=== PATIENT | male | born 1995 ===

== ENCOUNTER 2020-09-24 13:13 | Inpatient (IN) | payer OTHER ==
[~2020-09-24] VITALS: Ht 180.3 cm; Wt 80.3 kg
--- NOTE | 2020-09-24 17:20 | RAD ---
EXAM: AP View of the chest DATE: 09/24/2020 5:07 PM INDICATION: Shortness of air COMPARISON: No Prior FINDINGS: The heart is not enlarged. Mediastinal and hilar contours are stable. Small right pleural effusion. No pneumothorax. Parenchymal opacities in the right lower lobe may represent consolidation. Imaging follow-up to resol ution is recommended. IMPRESSION: Consolidative opacity right lower lobe with right pleural effusion. This may be infectious or inflamm atory process. However, imaging follow-up to resolution is recommended. Electronically signed by: Ethan Gray MD (09/24/2020 5:18 PM) [facility]
--- NOTE | 2020-09-24 18:38 | EKG ---
[facility] [address] [place] [address] Test Date: 2020-09-24 Test Time: 16:58:35 Pat Name: LEYLA CARSON Department: Room: Gender: M [employer] Lead: : 1995 Requested By: PIOTR BUSTOS Order Number: [id number] Reading MD: Measurements Intervals [place] Rate: 79 P: 39 AL: 152 QRS: 26 QRSD: 88 T: 26 QT: 384 QTc: 441 Interpretive Statements SINUS RHYTHM NORMAL ECG RI6.02 No previous ECG available for comparison
[2020-09-24 18:49] LABS: BASO # 0.1 x10^3/uL (0.0-0.2); BASO % 0 % (0-3); EOS % 0 % (0-3); HEMATOCRIT 34.7 % (39.0-53.0); HEMOGLOBIN 11.7 g/dL (13.0-17.5); LYMPH # 1.2 x10^3/uL (1.0-4.8); LYMPH % 7 % (24-48); MEAN CORPUSCULAR HEMOGLOBIN 29 pg (25-35); MEAN CORPUSCULAR HGB CONC 34 g/dL (31-37); MEAN CORPUSCULAR VOLUME 87 fL (79-100); MONO # 0.5 x10^3/uL (0.0-1.1); MONO % 3 % (0-9); NEUT # 17.1 x10^3/uL (1.8-7.7); NEUT % 91 % (31-73); PLATELET COUNT 651 x10^3/uL (140-400); RED CELL DISTRIBUTION WIDTH 15.2 % (11.5-14.5); WHITE BLOOD COUNT 18.9 x10^3/uL (4.0-11.0)
[2020-09-24 18:51] LABS: BILIRUBIN,URINE NEGATIVE (NEG); CLARITY,URINE CLEAR; COLOR,URINE YELLOW; NITRITE,URINE NEGATIVE (NEG); PROTEIN,URINE NEGATIVE (NEG-TRACE); UROBILINOGEN,URINE 0.2 mg/dL (0.2 mg/dL)
[2020-09-24 19:02] LABS: BACTERIA,URINE 0 /HPF (0-FEW); RBC,URINE 0 /HPF (0-2)
[2020-09-24 19:03] LABS: CALCIUM 8.4 mg/dL (8.5-10.1); CREATININE 0.8 mg/dL (0.7-1.3); GFR 116.9; POTASSIUM 4.4 mmol/L (3.5-5.1)
[2020-09-24 19:09] LABS: ALBUMIN 1.7 g/dL (3.4-5.0); ALBUMIN/GLOBULIN RATIO 0.3 (1.0-1.7); MAGNESIUM 2.4 mg/dL (1.8-2.4); TOTAL BILIRUBIN 0.4 mg/dL (0.2-1.0); TOTAL PROTEIN 7.2 g/dL (6.4-8.2)
[2020-09-24] MEDS ORDERED: IOHEXOL 350 MG/ML 100 ML VIAL. IV ONE (19:30)
[2020-09-24 19:33] LABS: % BANDS 10 % (0-9); % LYMPHS 6 % (24-48); % METAS 4 % (0-0); % SEGS 80 % (35-66)
[2020-09-24 19:34] LABS: PLT ESTIMATE INCREASED (ADEQUATE)
--- NOTE | 2020-09-24 20:01 | PHYS DOC ---
Past Medical History Past Medical History: No Pertinent History (PIOTR BUSTOS ENGINEERING GEOLOGIST) Past Surgical History: No Surgical History (PIOTR BUSTOS ENGINEERING GEOLOGIST) Smoking Status: Current Every Day Smoker Additional Information: 1 PPD Alcohol Use: Occasionally (PIOTR BUSTOS ENGINEERING GEOLOGIST) General Adult EDM: Chief Complaint: SHORTNESS OF BREATH HPI: HPI: Patient is a 25 year old male patient presenting from the local correctional facility with 2 security officers to be evaluated for cough and shortness of breath for 2 weeks. Patient was is on antibiotics but reports no improvement in symptoms. Patient denies any fever. Patient states he had a negative Covid test in [facility] yesterday (BLUNicholasPIOTR Ghada ENGINEERING GEOLOGIST) Review of Systems: Review of Systems: Constitutional: Denies fever or chills. [] Eyes: Denies change in visual acuity. [] HENT: Denies nasal congestion or sore throat. [] Respiratory: Reports cough and shortness of breath. [] Cardiovascular: Denies chest pain or edema. [] GI: Denies abdominal pain, nausea, vomiting, bloody stools or diarrhea. [] : Denies dysuria. [] Musculoskeletal: Denies back pain or joint pain. [] Integument: Denies rash. [] Neurologic: Denies headache, focal weakness or sensory changes. [] [] Psychiatric: Denies depression or anxiety. [] (PIOTR BUSTOS ENGINEERING GEOLOGIST) Heart Score: C/O Chest Pain: N/A (Negative) Risk Factors: Risk Factors: DM, Current or recent (<one month) smoker, HTN, HLP, family history of CAD, obesity. Risk Scores: Score 0 - 3: 2.5% MACE over next 6 weeks - Discharge Home Score 4 - 6: 20.3% MACE over next 6 weeks - Admit for Clinical Observation Score 7 - 10: 72.7% MACE over next 6 weeks - Early Invasive Strategies (PIOTR BUSTOS ENGINEERING GEOLOGIST) Current Medications: Current Medications Medications (Trade) Dose Ordered Sig/Ayaka Start Time Stop Time Status Last Admin Dose Admin Iohexol (Omnipaque 350 Mg/ml) 100 ml 1X ONCE 09/24/20 19:30 09/24/20 19:33 DC 09/24/20 19:47 100 ML (PIOTR BUSTOS ENGINEERING GEOLOGIST) Allergies: Allergies: Allergies Coded Allergies Type Severity Reaction Last Updated Verified cefaclor Allergy Unknown UNKNOWN 09/24/20 Yes (PIOTR BUSTOS ENGINEERING GEOLOGIST) Physical Exam: PE: Constitutional: Well developed, well nourished, no acute distress, non-toxic appearance. [] HENT: Normocephalic, atraumatic, bilateral external ears normal, oropharynx moist, no oral exudates, nose normal. [] Eyes: PERRLA, EOMI, conjunctiva normal, no discharge. [] Neck: Normal range of motion, no tenderness, supple, no stridor. [] Cardiovascular:Heart rate regular rhythm, no murmur [] Lungs & Thorax: Diminished breath sounds Abdomen: Bowel sounds normal, soft, no tenderness, no masses, no pulsatile corey s. [] Skin: Warm, dry, no erythema, no rash. [] Back: No tenderness, no CVA tenderness. [] Extremities: No tenderness, no cyanosis, no clubbing, ROM intact, no edema. [] Neurologic: Alert and oriented X 3, normal motor function, normal sensory function, no focal deficits noted. [] Psychologic: Affect normal, judgement normal, mood normal. [] (PIOTR BUSTOS ENGINEERING GEOLOGIST) Current Patient Data: Labs: Laboratory Tests Test 09/24/20 18:35 09/24/20 18:40 Urine Collection Type Unknown Urine Color Yellow Urine Clarity Clear Urine pH 6.0 (<5.0-8.0) Urine Specific [place] <=1.005 (1.000-1.030) Urine Protein Negative mg/dL (NEG-TRACE) Urine Glucose (UA) Negative mg/dL (NEG) Urine Ketones (Stick) Negative mg/dL (NEG) Urine Blood Negative (NEG) Urine Nitrite Negative (NEG) Urine Bilirubin Negative (NEG) Urine Urobilinogen Dipstick 0.2 mg/dL (0.2 mg/dL) Urine Leukocyte Esterase Negative (NEG) Urine RBC 0 /HPF (0-2) Urine WBC 1-4 /HPF (0-4) Urine Bacteria 0 /HPF (0-FEW) White Blood Count 18.9 x10^3/uL (4.0-11.0) H Red Blood Count 4.00 x10^6/uL (4.30-5.70) L Hemoglobin 11.7 g/dL (13.0-17.5) L Hematocrit 34.7 % (39.0-53.0) L Mean Corpuscular Volume 87 fL (79-100) Mean Corpuscular Hemoglobin 29 pg (25-35) Mean Corpuscular Hemoglobin Concent 34 g/dL (31-37) Red Cell Distribution Width 15.2 % (11.5-14.5) H Platelet Count 651 x10^3/uL (140-400) H Neutrophils (%) (Auto) 91 % (31-73) H Lymphocytes (%) (Auto) 7 % (24-48) L Monocytes (%) (Auto) 3 % (0-9) Eosinophils (%) (Auto) 0 % (0-3) Basophils (%) (Auto) 0 % (0-3) Neutrophils # (Auto) 17.1 x10^3/uL (1.8-7.7) H Lymphocytes # (Auto) 1.2 x10^3/uL (1.0-4.8) Monocytes # (Auto) 0.5 x10^3/uL (0.0-1.1) Eosinophils # (Auto) 0.0 x10^3/uL (0.0-0.7) Basophils # (Auto) 0.1 x10^3/uL (0.0-0.2) Segmented Neutrophils % 80 % (35-66) H Band Neutrophils % 10 % (0-9) H Lymphocytes % 6 % (24-48) L Metamyelocytes % 4 % (0-0) H Platelet Estimate Increased (ADEQUATE) D-Dimer (Kristen) 1.71 ug/mlFEU (0.00-0.50) H Sodium Level 133 mmol/L (136-145) L Potassium Level 4.4 mmol/L (3.5-5.1) Chloride Level 99 mmol/L (98-107) Carbon Dioxide Level 27 mmol/L (21-32) Anion Gap 7 (6-14) Blood Urea Nitrogen 10 mg/dL (8-26) Creatinine 0.8 mg/dL (0.7-1.3) Estimated GFR (Cockcroft-Gault) 116.9 BUN/Creatinine Ratio 13 (6-20) Glucose Level 124 mg/dL (70-99) H Lactic Acid Level 1.2 mmol/L (0.4-2.0) Calcium Level 8.4 mg/dL (8.5-10.1) L Magnesium Level 2.4 mg/dL (1.8-2.4) Total Bilirubin 0.4 mg/dL (0.2-1.0) Aspartate Amino Transferase (AST) 43 U/L (15-37) H Alanine Aminotransferase (ALT) 50 U/L (16-63) Alkaline Phosphatase 57 U/L (46-116) Troponin I Quantitative < 0.017 ng/mL (0.000-0.055) WQ-Usc-S-Type Natriuretic Peptide 83 pg/mL (0-124) Total Protein 7.2 g/dL (6.4-8.2) Albumin 1.7 g/dL (3.4-5.0) L Albumin/Globulin Ratio 0.3 (1.0-1.7) L Procalcitonin 0.35 ng/mL (0.00-0.10) H Laboratory Tests 09/24/20 18:40 Laboratory Tests 09/24/20 18:40 Vital Signs: Vital Signs Date Time Temp Pulse Resp B/P (MAP) Pulse Ox O2 Delivery O2 Flow Rate FiO2 09/24/20 16:42 98.3 80 20 116/69 (85) 94 Room Air 98.3 (PIOTR BUSTOS ENGINEERING GEOLOGIST) EKG: EK Interpreted by Dr. Noble sinus rhythm heart rate 79 no STEMI [] (PIOTR BUSTOS ENGINEERING GEOLOGIST) Radiology/Procedures: Radiology/Procedures: []PROCEDURE: PORTABLE CHEST 1V EXAM: AP View of the chest DATE: 09/24/2020 5:07 PM INDICATION: Shortness of air COMPARISON: No Prior FINDINGS: The heart is not enlarged. Mediastinal and hilar contours are stable. Small right pleural effusion. No pneumothorax. Parenchymal opacities in the right lower lobe may represent consolidation. Imaging follow-up to resolution is recommended. IMPRESSION: Consolidative opacity right lower lobe with right pleural effusion. This may be infectious or inflammatory process. However, imaging follow-up to resolution is recommended. Electronically signed by: Ethan Jones MD (09/24/2020 5:18 PM) [facility] DI[facility]ATED and SIGNED BY: ETHAN JONES MD DATE: 09/24/20 [id number] PROCEDURE: CT ANGIOGRAPHY CHEST Exam: CT of chest with contrast INDICATION: Short of air TECHNIQUE: Sequential axial images through the chest obtained following the admi nistration 100 mL of Omni 350 IV contrast. Sagittal and coronal reformatted images were reconstructed from the axial data and reviewed. 3-D reformatted images were reconstructed from the axial data and reviewed. Comparisons: Chest x-ray same day FINDINGS: Visualized portions of the thyroid are unremarkable. Right hilar adenopathy is noted. Heart size is normal. Small pericardial effusion. Thoracic aorta has a normal course and caliber. Pulmonary artery is not enlarged. No pulmonary embolus id entified within the main, lobar or segmental arteries. Airways are patent. There is consolidative changes noted in the right lower lobe. There is a 6.1 x 2.3 cm air and fluid collection along the periphery of the right lower lobe favored represent cavitary lesion with internal air and fluid. There is a small right pleural effusion. Visualized upper abdomen is unremarkable. No suspicious osseous lesions or acute fractures. IMPRESSION: 1. Right lower lobe pneumonia with a cavitary lesion in the right lower lobe measuring approximately 6.1 x 2.4 cm with internal air and fluid favored repres ent abscess. 2. There is a small right pleural effusion noted. 3. No pulmonary embolus identified within the main, lobar or segmental pulmonary arteries. Exposure: One or more of the following in the visualized dose reduction techniques were utilized for this examination: 1. Automated exposure control 2. Adjustment of the MA and/or KV according to patient size 3. Use of iterative of reconstructive technique Electronically signed by: Hoang Hayes MD (09/24/2020 8:03 PM) [facility] DICTATED and SIGNED BY: HOANG HAYES MD DATE: 09/24/[id number] 0 (PIOTR BUSTOS APRN) Course & Med Decision Making: Course & Med Decision Making Pertinent Labs and Imaging studies reviewed. (See chart for details) This is a 25-year-old male patient presenting to the ED today from the local correctional facility to be evaluated for shortness of breath and cough for 2 weeks. Vitals on arrival to the ED temperature 98.3, heart rate 80, respiration 20 on room air, blood pressure 116/69, O2 sats 94% on room air CBC with a WBC of 18.9 and a left shift, hemoglobin 11.7, hematocrit 34.7. D- dimer 1.71, CTA chest was obtained. Lactic is normal Chest x-ray noted for consolidative opacity right lower lobe with right pleural effusion. This may be infectious or inflammatory process. CTA chest noted for right lower lobe pneumonia with right lower lobe abscess abscess. small right pleural effusion noted. No PE Patient was started on IV fluids, Zosyn and vancomycin Spoke with Dr. Simons who accepted patient for admission Spoke with Dr. Pandey infectious disease Spoke with Dr. Healy pulmonary (PIOTR BUSTOS APRN) Dragon Disclaimer: Dragon Disclaimer: This electronic medical record was generated, in whole or in part, using a voice recognition dictation system. (PIOTR BUSTOS APRN) Departure Departure Impression: Primary Impression: Right lower lobe pneumonia Qualified Codes: J18.9 - Pneumonia, unspecified organism Additional Impressions: Shortness of breath Leukocytosis Qualified Codes: D72.829 - Elevated white blood cell count, unspecified Disposition: ADMITTED INPATIENT Condition: STABLE Referrals: NO PCP (PCP) Attending Signature Attending Signature I have participated in the care of this patient and I have reviewed and agree with all pertinent clinical information above including history, exam, and recommendations. (ANITA JOEL MD) PIOTR BUSTOS APRN Sep 24, 2020 20:01 ANITA JOEL MD Sep 25, 2020 06:06
--- NOTE | 2020-09-24 20:05 | RAD ---
Exam: CT of chest with contrast INDICATION: Short of air TECHNIQUE: Sequential axial images through the chest obtained following the administration 100 mL of Omni 350 IV contrast. Sagittal and coronal reformatted images were reconstructed from the axial data and reviewed. 3-D reformatted images were reconstructed from the axial data and reviewed. Comparisons: Chest x-ray same day FINDINGS: Visualized portions of the thyroid are unremarkable. Right hilar adenopathy is noted. Heart size is normal. Small pericardial effusion. Thoracic aorta has a normal course and caliber. Pul monary artery is not enlarged. No pulmonary embolus identified within the main, lobar or segmental ar teries. Airways are patent. There is consolidative changes noted in the right lower lobe. There is a 6.1 x 2. 3 cm air and fluid collection along the periphery of the right lower lobe favored represent cavitary lesion with internal air and fluid. There is a small right pleural effusion. Visualized upper abdomen is unremarkable. No suspicious osseous lesions or acute fractures. IMPRESSION: 1. Right lower lobe pneumonia with a cavitary lesion in the right lower lobe measuring approximately 6.1 x 2.4 cm with internal air and fluid favored represent abscess. 2. There is a small right pleural effusion noted. 3. No pulmonary embolus identified within the main, lobar or segmental pulmonary arteries. Exposure: One or more of the following in the visualized dose reduction techniques were utilized for this examination: 1. Automated exposure control 2. Adjustment of the MA and/or KV according to patient size 3. Use of iterative of reconstructive technique Electronically signed by: Hoang Ojeda MD (09/24/2020 8:03 PM) [facility]
[2020-09-24] MEDS ORDERED: IV NORMAL SALINE 1000ML BAG 2,250 ML IV SCH (20:15)
[2020-09-24] MEDS ORDERED: VANCOMYCIN PER PHARMACY MC ONE (20:15)
[2020-09-24] MEDS ORDERED: SENNOSIDES 8.6 MG TABLET PO PRN (20:30)
[2020-09-24] MEDS ORDERED: DEXTROSE 50% 25 GM / 50ML DISP.SYRIN. IV PRN (20:30)
[2020-09-24] MEDS: IV NORMAL SALINE 1000ML BAG 1,000 ML IV SCH (20:30)
[2020-09-24] MEDS ORDERED: ONDANSETRON PF 4 MG/2 ML VIAL. IVP PRN (20:30)
[2020-09-24] MEDS ORDERED: DOCUSATE SODIUM 100 MG CAPSULE. PO PRN (20:30)
--- NOTE | 2020-09-24 20:30 | PDOC1 ---
History and Physical Date of Service: DOS: DATE: 09/24/20 TIME: 20:25 Chief Complaint: Chief Complain: shortness of breath History of Present Illness: HPI: 25-year-old male with PMHx of IVDA 6 years ago, Hx of childhood asthma, and incarcerated 1 year ago comes [facility] due to Cough and shortness of breath for 2 weeks. Apparently, patient had a cough 2 months ago but did not do much about it at that time. With this presenation, patient was unable to sleep and had more production with riya brown malodorous sputum. He felt as if something was draining from his lungs when lying down on his Right side. Patient was is on antibiotics but reports no improvement in symptoms. Patient denies any fever, chest pain, dysuria, or bloody stools.. Past Medical/Surgical History: PMH/PSH: No past medical surgical history Allergies: Allergies: Coded Allergies: cefaclor (Verified Allergy, Unknown, UNKNOWN, 09/24/20) Family History: Family History: Reviewed with no pertinent findings Social History: Social History: Past Medical History: No Pertinent History Past Surgical History: No Surgical History Current Medications: Current Medications Current Medications Iohexol (Omnipaque 350 Mg/ml) 100 ml 1X ONCE IV Last administered on 09/24/20at 19:47; Start 09/24/20 at 19:30; Stop 09/24/20 at 19:33; Status DC Sodium Chloride 2,250 ml @ 2,250 mls/hr Q1H IV ; Start 09/24/20 at 20:15; Status UNV Piperacillin Sod/ Tazobactam Sod 4.5 gm/Sodium Chloride 100 ml @ 200 mls/hr 1X ONCE IV ; Start 09/24/20 at 20:15; Stop 09/24/20 at 20:44; Status UNV Vancomycin HCl (Vanco Per Pharmacy) 1 each 1X ONCE MC ; Start 09/24/20 at 20:15; Stop 09/24/20 at 20:16; Status UNV ROS: Review of Systems Review of System REVIEW OF SYSTEMS: GENERAL: Denies weakness SKIN: No bruising, hair changes or rashes. EYES: No blurred, double or loss of vision. NOSE AND THROAT: No history of nosebleeds, hoarseness or sore throat. HEART: No history of palpitations, chest pain or shortness of breath on exertion. LUNGS: Denies cough, hemoptysis, wheezing or shortness of breath. GASTROINTESTINAL: Denies changes in appetite, nausea, vomiting, diarrhea or constipation. GENITOURINARY: No history of frequency, urgency, hesitancy or nocturia. NEUROLOGIC: Denies history of numbness, tingling, or tremor. PSYCHIATRIC: No history of panic, anxiety or depression. ENDOCRINE: No history of heat or cold intolerance, polyuria or polydipsia. EXTREMITIES: Denies joint pain, pain on walking or stiffness. Physical Exam: Vital Signs: Vital Signs Date Time Temp Pulse Resp B/P (MAP) Pulse Ox O2 Delivery O2 Flow Rate FiO2 09/24/20 18:48 78 28 117/71 (86) 94 Room Air 09/24/20 16:42 98.3 98.3 Physcial Exam: GEN: No apparent distress. Alert and oriented HEENT: Normal cephalic, atraumatic, external auditory canals are patent EYES: Extraocular muscles are intact, pupil are equally round and reactive to light and accommodation MUSCULOSKELETAL: Well developed , well nourished, good range of motion ENDOCRINE: No thyromegaly was palpated LYMPHATICS: No cervical chain or axillary nodes were noted HEMATOPOIETIC: No bruising NECK: Supple, no JVD, no thyromegaly was noted LUNGS: Clear to auscultation in all lung banks without rhonchi or wheezing HEART: RRR, S!, S2 present. Peripheral pulses intact, no obvious murmurs noted ABDOMEN: Soft, nontender. Positive bowel sounds, no organomegaly, normal bowel sounds EXTREMITIES: Without clubbing, cyanosis, or edema. Pedal pulses intact. Negative Homans sign NEUROLOGIC: Normal speech and tone. A&O x 3, moves all extremities, no obvious focal deficits PSYCHIATRIC: Normal affect, normal mood. Stable SKIN: No ulcerations or rashes, good skin turgor, no jaundice VASCULAR: Good capillary refill, neurovascular bundle appears to be intact Labs: Labs: Laboratory Tests Test 09/24/20 18:35 09/24/20 18:40 Urine Collection Type Unknown Urine Color Yellow Urine Clarity Clear Urine pH 6.0 (<5.0-8.0) Urine Specific [place] <=1.005 (1.000-1.030) Urine Protein Negative mg/dL (NEG-TRACE) Urine Glucose (UA) Negative mg/dL (NEG) Urine Ketones (Stick) Negative mg/dL (NEG) Urine Blood Negative (NEG) Urine Nitrite Negative (NEG) Urine Bilirubin Negative (NEG) Urine Urobilinogen Dipstick 0.2 mg/dL (0.2 mg/dL) Urine Leukocyte Esterase Negative (NEG) Urine RBC 0 /HPF (0-2) Urine WBC 1-4 /HPF (0-4) Urine Bacteria 0 /HPF (0-FEW) White Blood Count 18.9 x10^3/uL (4.0-11.0) Red Blood Count 4.00 x10^6/uL (4.30-5.70) Hemoglobin 11.7 g/dL (13.0-17.5) Hematocrit 34.7 % (39.0-53.0) Mean Corpuscular Volume 87 fL (79-100) Mean Corpuscular Hemoglobin 29 pg (25-35) Mean Corpuscular Hemoglobin Concent 34 g/dL (31-37) Red Cell Distribution Width 15.2 % (11.5-14.5) Platelet Count 651 x10^3/uL (140-400) Neutrophils (%) (Auto) 91 % (31-73) Lymphocytes (%) (Auto) 7 % (24-48) Monocytes (%) (Auto) 3 % (0-9) Eosinophils (%) (Auto) 0 % (0-3) Basophils (%) (Auto) 0 % (0-3) Neutrophils # (Auto) 17.1 x10^3/uL (1.8-7.7) Lymphocytes # (Auto) 1.2 x10^3/uL (1.0-4.8) Monocytes # (Auto) 0.5 x10^3/uL (0.0-1.1) Eosinophils # (Auto) 0.0 x10^3/uL (0.0-0.7) Basophils # (Auto) 0.1 x10^3/uL (0.0-0.2) Segmented Neutrophils % 80 % (35-66) Band Neutrophils % 10 % (0-9) Lymphocytes % 6 % (24-48) Metamyelocytes % 4 % (0-0) Platelet Estimate Increased (ADEQUATE) D-Dimer (Kristen) 1.71 ug/mlFEU (0.00-0.50) Sodium Level 133 mmol/L (136-145) Potassium Level 4.4 mmol/L (3.5-5.1) Chloride Level 99 mmol/L (98-107) Carbon Dioxide Level 27 mmol/L (21-32) Anion Gap 7 (6-14) Blood Urea Nitrogen 10 mg/dL (8-26) Creatinine 0.8 mg/dL (0.7-1.3) Estimated GFR (Cockcroft-Gault) 116.9 BUN/Creatinine Ratio 13 (6-20) Glucose Level 124 mg/dL (70-99) Lactic Acid Level 1.2 mmol/L (0.4-2.0) Calcium Level 8.4 mg/dL (8.5-10.1) Magnesium Level 2.4 mg/dL (1.8-2.4) Total Bilirubin 0.4 mg/dL (0.2-1.0) Aspartate Amino Transf (AST/SGOT) 43 U/L (15-37) Alanine Aminotransferase (ALT/SGPT) 50 U/L (16-63) Alkaline Phosphatase 57 U/L (46-116) Troponin I Quantitative < 0.017 ng/mL (0.000-0.055) PS-Nkz-O-Type Natriuretic Peptide 83 pg/mL (0-124) Total Protein 7.2 g/dL (6.4-8.2) Albumin 1.7 g/dL (3.4-5.0) Albumin/Globulin Ratio 0.3 (1.0-1.7) Procalcitonin 0.35 ng/mL (0.00-0.10) Laboratory Tests Test 09/24/20 18:35 09/24/20 18:40 Urine Collection Type Unknown Urine Color Yellow Urine Clarity Clear Urine pH 6.0 (<5.0-8.0) Urine Specific [place] <=1.005 (1.000-1.030) Urine Protein Negative mg/dL (NEG-TRACE) Urine Glucose (UA) Negative mg/dL (NEG) Urine Ketones (Stick) Negative mg/dL (NEG) Urine Blood Negative (NEG) Urine Nitrite Negative (NEG) Urine Bilirubin Negative (NEG) Urine Urobilinogen Dipstick 0.2 mg/dL (0.2 mg/dL) Urine Leukocyte Esterase Negative (NEG) Urine RBC 0 /HPF (0-2) Urine WBC 1-4 /HPF (0-4) Urine Bacteria 0 /HPF (0-FEW) White Blood Count 18.9 x10^3/uL (4.0-11.0) Red Blood Count 4.00 x10^6/uL (4.30-5.70) Hemoglobin 11.7 g/dL (13.0-17.5) Hematocrit 34.7 % (39.0-53.0) Mean Corpuscular Volume 87 fL (79-100) Mean Corpuscular Hemoglobin 29 pg (25-35) Mean Corpuscular Hemoglobin Concent 34 g/dL (31-37) Red Cell Distribution Width 15.2 % (11.5-14.5) Platelet Count 651 x10^3/uL (140-400) Neutrophils (%) (Auto) 91 % (31-73) Lymphocytes (%) (Auto) 7 % (24-48) Monocytes (%) (Auto) 3 % (0-9) Eosinophils (%) (Auto) 0 % (0-3) Basophils (%) (Auto) 0 % (0-3) Neutrophils # (Auto) 17.1 x10^3/uL (1.8-7.7) Lymphocytes # (Auto) 1.2 x10^3/uL (1.0-4.8) Monocytes # (Auto) 0.5 x10^3/uL (0.0-1.1) Eosinophils # (Auto) 0.0 x10^3/uL (0.0-0.7) Basophils # (Auto) 0.1 x10^3/uL (0.0-0.2) Segmented Neutrophils % 80 % (35-66) Band Neutrophils % 10 % (0-9) Lymphocytes % 6 % (24-48) Metamyelocytes % 4 % (0-0) Platelet Estimate Increased (ADEQUATE) D-Dimer (Kristen) 1.71 ug/mlFEU (0.00-0.50) Sodium Level 133 mmol/L (136-145) Potassium Level 4.4 mmol/L (3.5-5.1) Chloride Level 99 mmol/L (98-107) Carbon Dioxide Level 27 mmol/L (21-32) Anion Gap 7 (6-14) Blood Urea Nitrogen 10 mg/dL (8-26) Creatinine 0.8 mg/dL (0.7-1.3) Estimated GFR (Cockcroft-Gault) 116.9 BUN/Creatinine Ratio 13 (6-20) Glucose Level 124 mg/dL (70-99) Lactic Acid Level 1.2 mmol/L (0.4-2.0) Calcium Level 8.4 mg/dL (8.5-10.1) Magnesium Level 2.4 mg/dL (1.8-2.4) Total Bilirubin 0.4 mg/dL (0.2-1.0) Aspartate Amino Transf (AST/SGOT) 43 U/L (15-37) Alanine Aminotransferase (ALT/SGPT) 50 U/L (16-63) Alkaline Phosphatase 57 U/L (46-116) Troponin I Quantitative < 0.017 ng/mL (0.000-0.055) QH-Pbl-O-Type Natriuretic Peptide 83 pg/mL (0-124) Total Protein 7.2 g/dL (6.4-8.2) Albumin 1.7 g/dL (3.4-5.0) Albumin/Globulin Ratio 0.3 (1.0-1.7) Procalcitonin 0.35 ng/mL (0.00-0.10) Images: Images PROCEDURE: CT ANGIOGRAPHY CHEST IMPRESSION: 1. Right lower lobe pneumonia with a cavitary lesion in the right lower lobe measuring approximately 6.1 x 2.4 cm with internal air and fluid favored represent abscess. 2. There is a small right pleural effusion noted. 3. No pulmonary embolus identified within the main, lobar or segmental pulmonary arteries. Assessment/Plan Assessment/Plan Right lower lobe pneumonia with cavitary lesion, possible gram-negative organism, possible staph aureus, possible aspiration normocytic anemia due to chronic inflammation thrombocytosis suggestive of reactive to infection mild hyponatremia severe protein malnutrition incarcerated Admit to medicine for further management Pulm consult ID consult IV Vanc/Zosyn continue IV fluids Pending BLood Cx Pending HIV Lovenox for DVT prophylaxis Reg Diet FULL code DPOA: Undesignated Justifications for Admission Other Justification JACK ARELLANO MD Sep 24, 2020 20:30
[2020-09-24] MEDS ORDERED: IV NORMAL SALINE 1000ML BAG 1,000 ML IV SCH (21:00)
[2020-09-24] MEDS ORDERED: PIPERACILLIN/TAZOBACTAM 4.5 GM in IV NORMAL SALINE 100ML 100 ML IV ONE (21:00)
[2020-09-24] MEDS ORDERED: VANCOMYCIN 1.75 GM in IV NORMAL SALINE 500ML BAG 500 ML IV ONE (21:30)
[2020-09-24 22:00] VITALS: BP 90/65
[2020-09-24] MEDS ORDERED: ONDANSETRON PF 4 MG/2 ML VIAL. IV PRN (22:45)
[2020-09-24] MEDS ORDERED: ACETAMINOPHEN 325 MG TABLET. PO PRN (22:45)
[2020-09-24] MEDS ORDERED: IV NORMAL SALINE 1000ML BAG 1,000 ML IV ONE (22:45)
[2020-09-24] MEDS ORDERED: MORPHINE SULFATE 2 MG/ML VIAL. IV PRN (22:45)
[2020-09-24 23:00] VITALS: BP 109/63
[2020-09-25 03:00] VITALS: BP 119/62
[2020-09-25] MEDS: ACETAMINOPHEN 325 MG TABLET. PO PRN ×3 (04:29→22:55)
[2020-09-25 07:00] VITALS: BP 104/54
[2020-09-25] MEDS: ENOXAPARIN 40 MG/0.4 ML SYRINGE. SQ SCH (08:56)
[2020-09-25] MEDS: IV NORMAL SALINE 1000ML BAG 1,000 ML IV SCH ×2 (09:01→16:30)
--- NOTE | 2020-09-25 09:18 | PDOC ---
PULMONARY PROGRESS NOTES DATE: 09/25/20 TIME: 09:17 Vitals Vital Signs Date Time Temp Pulse Resp B/P (MAP) Pulse Ox O2 Delivery O2 Flow Rate FiO2 09/25/20 07:00 98.1 84 18 104/54 (71) 95 Room Air 98.1 Labs Laboratory Tests Test 09/24/20 18:35 09/24/20 18:40 09/24/20 21:18 09/25/20 00:10 Urine Collection Type Unknown Urine Color Yellow Urine Clarity Clear Urine pH 6.0 (<5.0-8.0) Urine Specific [place] <=1.005 (1.000-1.030) Urine Protein Negative mg/dL (NEG-TRACE) Urine Glucose (UA) Negative mg/dL (NEG) Urine Ketones (Stick) Negative mg/dL (NEG) Urine Blood Negative (NEG) Urine Nitrite Negative (NEG) Urine Bilirubin Negative (NEG) Urine Urobilinogen Dipstick 0.2 mg/dL (0.2 mg/dL) Urine Leukocyte Esterase Negative (NEG) Urine RBC 0 /HPF (0-2) Urine WBC 1-4 /HPF (0-4) Urine Bacteria 0 /HPF (0-FEW) White Blood Count 18.9 x10^3/uL (4.0-11.0) Red Blood Count 4.00 x10^6/uL (4.30-5.70) Hemoglobin 11.7 g/dL (13.0-17.5) Hematocrit 34.7 % (39.0-53.0) Mean Corpuscular Volume 87 fL (79-100) Mean Corpuscular Hemoglobin 29 pg (25-35) Mean Corpuscular Hemoglobin Concent 34 g/dL (31-37) Red Cell Distribution Width 15.2 % (11.5-14.5) Platelet Count 651 x10^3/uL (140-400) Neutrophils (%) (Auto) 91 % (31-73) Lymphocytes (%) (Auto) 7 % (24-48) Monocytes (%) (Auto) 3 % (0-9) Eosinophils (%) (Auto) 0 % (0-3) Basophils (%) (Auto) 0 % (0-3) Neutrophils # (Auto) 17.1 x10^3/uL (1.8-7.7) Lymphocytes # (Auto) 1.2 x10^3/uL (1.0-4.8) Monocytes # (Auto) 0.5 x10^3/uL (0.0-1.1) Eosinophils # (Auto) 0.0 x10^3/uL (0.0-0.7) Basophils # (Auto) 0.1 x10^3/uL (0.0-0.2) Segmented Neutrophils % 80 % (35-66) Band Neutrophils % 10 % (0-9) Lymphocytes % 6 % (24-48) Metamyelocytes % 4 % (0-0) Platelet Estimate Increased (ADEQUATE) D-Dimer (Kristen) 1.71 ug/mlFEU (0.00-0.50) Sodium Level 133 mmol/L (136-145) Potassium Level 4.4 mmol/L (3.5-5.1) Chloride Level 99 mmol/L (98-107) Carbon Dioxide Level 27 mmol/L (21-32) Anion Gap 7 (6-14) Blood Urea Nitrogen 10 mg/dL (8-26) Creatinine 0.8 mg/dL (0.7-1.3) Estimated GFR (Cockcroft-Gault) 116.9 BUN/Creatinine Ratio 13 (6-20) Glucose Level 124 mg/dL (70-99) Lactic Acid Level 1.2 mmol/L (0.4-2.0) Calcium Level 8.4 mg/dL (8.5-10.1) Magnesium Level 2.4 mg/dL (1.8-2.4) Total Bilirubin 0.4 mg/dL (0.2-1.0) Aspartate Amino Transf (AST/SGOT) 43 U/L (15-37) Alanine Aminotransferase (ALT/SGPT) 50 U/L (16-63) Alkaline Phosphatase 57 U/L (46-116) Troponin I Quantitative < 0.017 ng/mL (0.000-0.055) < 0.017 ng/mL (0.000-0.055) < 0.017 ng/mL (0.000-0.055) NI-Abe-V-Type Natriuretic Peptide 83 pg/mL (0-124) Total Protein 7.2 g/dL (6.4-8.2) Albumin 1.7 g/dL (3.4-5.0) Albumin/Globulin Ratio 0.3 (1.0-1.7) Procalcitonin 0.35 ng/mL (0.00-0.10) Laboratory Tests Test 09/24/20 18:35 09/24/20 18:40 09/24/20 21:18 09/25/20 00:10 Urine Collection Type Unknown Urine Color Yellow Urine Clarity Clear Urine pH 6.0 (<5.0-8.0) Urine Specific [place] <=1.005 (1.000-1.030) Urine Protein Negative mg/dL (NEG-TRACE) Urine Glucose (UA) Negative mg/dL (NEG) Urine Ketones (Stick) Negative mg/dL (NEG) Urine Blood Negative (NEG) Urine Nitrite Negative (NEG) Urine Bilirubin Negative (NEG) Urine Urobilinogen Dipstick 0.2 mg/dL (0.2 mg/dL) Urine Leukocyte Esterase Negative (NEG) Urine RBC 0 /HPF (0-2) Urine WBC 1-4 /HPF (0-4) Urine Bacteria 0 /HPF (0-FEW) White Blood Count 18.9 x10^3/uL (4.0-11.0) Red Blood Count 4.00 x10^6/uL (4.30-5.70) Hemoglobin 11.7 g/dL (13.0-17.5) Hematocrit 34.7 % (39.0-53.0) Mean Corpuscular Volume 87 fL (79-100) Mean Corpuscular Hemoglobin 29 pg (25-35) Mean Corpuscular Hemoglobin Concent 34 g/dL (31-37) Red Cell Distribution Width 15.2 % (11.5-14.5) Platelet Count 651 x10^3/uL (140-400) Neutrophils (%) (Auto) 91 % (31-73) Lymphocytes (%) (Auto) 7 % (24-48) Monocytes (%) (Auto) 3 % (0-9) Eosinophils (%) (Auto) 0 % (0-3) Basophils (%) (Auto) 0 % (0-3) Neutrophils # (Auto) 17.1 x10^3/uL (1.8-7.7) Lymphocytes # (Auto) 1.2 x10^3/uL (1.0-4.8) Monocytes # (Auto) 0.5 x10^3/uL (0.0-1.1) Eosinophils # (Auto) 0.0 x10^3/uL (0.0-0.7) Basophils # (Auto) 0.1 x10^3/uL (0.0-0.2) Segmented Neutrophils % 80 % (35-66) Band Neutrophils % 10 % (0-9) Lymphocytes % 6 % (24-48) Metamyelocytes % 4 % (0-0) Platelet Estimate Increased (ADEQUATE) D-Dimer (Kristen) 1.71 ug/mlFEU (0.00-0.50) Sodium Level 133 mmol/L (136-145) Potassium Level 4.4 mmol/L (3.5-5.1) Chloride Level 99 mmol/L (98-107) Carbon Dioxide Level 27 mmol/L (21-32) Anion Gap 7 (6-14) Blood Urea Nitrogen 10 mg/dL (8-26) Creatinine 0.8 mg/dL (0.7-1.3) Estimated GFR (Cockcroft-Gault) 116.9 BUN/Creatinine Ratio 13 (6-20) Glucose Level 124 mg/dL (70-99) Lactic Acid Level 1.2 mmol/L (0.4-2.0) Calcium Level 8.4 mg/dL (8.5-10.1) Magnesium Level 2.4 mg/dL (1.8-2.4) Total Bilirubin 0.4 mg/dL (0.2-1.0) Aspartate Amino Transf (AST/SGOT) 43 U/L (15-37) Alanine Aminotransferase (ALT/SGPT) 50 U/L (16-63) Alkaline Phosphatase 57 U/L (46-116) Troponin I Quantitative < 0.017 ng/mL (0.000-0.055) < 0.017 ng/mL (0.000-0.055) < 0.017 ng/mL (0.000-0.055) FS-Xat-R-Type Natriuretic Peptide 83 pg/mL (0-124) Total Protein 7.2 g/dL (6.4-8.2) Albumin 1.7 g/dL (3.4-5.0) Albumin/Globulin Ratio 0.3 (1.0-1.7) Procalcitonin 0.35 ng/mL (0.00-0.10) Impression . Full consult dictated CT reviewed, necrotizing pneumonia, suspect anaerobic bacteria We will check nasal PCR for MRSA, initiate MRSA coverage ANICETO CONKLIN MD Sep 25, 2020 09:18
[2020-09-25 11:00] VITALS: BP 107/69
[2020-09-25] MEDS: PIPERACILLIN/TAZOBACTAM 3.375 GM in IV NORMAL SALINE 50ML 50 ML IV SCH ×2 (12:05→17:07)
--- NOTE | 2020-09-25 13:27 | PDOC ---
Infectious Disease Note Vital Signs: Vital Signs Vital Signs Date Time Temp Pulse Resp B/P (MAP) Pulse Ox O2 Delivery O2 Flow Rate FiO2 09/25/20 11:00 98.0 91 18 107/69 (82) 95 Room Air 98.0 Medications: Inpatient Meds: Medications reviewed. Labs: Lab Laboratory Tests Test 09/24/20 18:35 09/24/20 18:40 09/24/20 21:18 09/25/20 00:10 Urine Collection Type Unknown Urine Color Yellow Urine Clarity Clear Urine pH 6.0 (<5.0-8.0) Urine Specific [place] <=1.005 (1.000-1.030) Urine Protein Negative mg/dL (NEG-TRACE) Urine Glucose (UA) Negative mg/dL (NEG) Urine Ketones (Stick) Negative mg/dL (NEG) Urine Blood Negative (NEG) Urine Nitrite Negative (NEG) Urine Bilirubin Negative (NEG) Urine Urobilinogen Dipstick 0.2 mg/dL (0.2 mg/dL) Urine Leukocyte Esterase Negative (NEG) Urine RBC 0 /HPF (0-2) Urine WBC 1-4 /HPF (0-4) Urine Bacteria 0 /HPF (0-FEW) White Blood Count 18.9 x10^3/uL (4.0-11.0) Red Blood Count 4.00 x10^6/uL (4.30-5.70) Hemoglobin 11.7 g/dL (13.0-17.5) Hematocrit 34.7 % (39.0-53.0) Mean Corpuscular Volume 87 fL (79-100) Mean Corpuscular Hemoglobin 29 pg (25-35) Mean Corpuscular Hemoglobin Concent 34 g/dL (31-37) Red Cell Distribution Width 15.2 % (11.5-14.5) Platelet Count 651 x10^3/uL (140-400) Neutrophils (%) (Auto) 91 % (31-73) Lymphocytes (%) (Auto) 7 % (24-48) Monocytes (%) (Auto) 3 % (0-9) Eosinophils (%) (Auto) 0 % (0-3) Basophils (%) (Auto) 0 % (0-3) Neutrophils # (Auto) 17.1 x10^3/uL (1.8-7.7) Lymphocytes # (Auto) 1.2 x10^3/uL (1.0-4.8) Monocytes # (Auto) 0.5 x10^3/uL (0.0-1.1) Eosinophils # (Auto) 0.0 x10^3/uL (0.0-0.7) Basophils # (Auto) 0.1 x10^3/uL (0.0-0.2) Segmented Neutrophils % 80 % (35-66) Band Neutrophils % 10 % (0-9) Lymphocytes % 6 % (24-48) Metamyelocytes % 4 % (0-0) Platelet Estimate Increased (ADEQUATE) D-Dimer (Kristen) 1.71 ug/mlFEU (0.00-0.50) Sodium Level 133 mmol/L (136-145) Potassium Level 4.4 mmol/L (3.5-5.1) Chloride Level 99 mmol/L (98-107) Carbon Dioxide Level 27 mmol/L (21-32) Anion Gap 7 (6-14) Blood Urea Nitrogen 10 mg/dL (8-26) Creatinine 0.8 mg/dL (0.7-1.3) Estimated GFR (Cockcroft-Gault) 116.9 BUN/Creatinine Ratio 13 (6-20) Glucose Level 124 mg/dL (70-99) Lactic Acid Level 1.2 mmol/L (0.4-2.0) Calcium Level 8.4 mg/dL (8.5-10.1) Magnesium Level 2.4 mg/dL (1.8-2.4) Total Bilirubin 0.4 mg/dL (0.2-1.0) Aspartate Amino Transf (AST/SGOT) 43 U/L (15-37) Alanine Aminotransferase (ALT/SGPT) 50 U/L (16-63) Alkaline Phosphatase 57 U/L (46-116) Troponin I Quantitative < 0.017 ng/mL (0.000-0.055) < 0.017 ng/mL (0.000-0.055) < 0.017 ng/mL (0.000-0.055) IX-Hvk-R-Type Natriuretic Peptide 83 pg/mL (0-124) Total Protein 7.2 g/dL (6.4-8.2) Albumin 1.7 g/dL (3.4-5.0) Albumin/Globulin Ratio 0.3 (1.0-1.7) Procalcitonin 0.35 ng/mL (0.00-0.10) HIV (1&2) Antibody Screen Nonreactive (Nonreactive) Objective: Assessment: Pt seen and examined ID consult dictated [id number] IMP: Right lower lobe pneumonia with cavitary lesion,air fluid level likely lung abscess Leucocytosis Anemia and thrombocytosis likely from infection Hyponatremia Incarcerated H/O smoking , marijhuana use in the past, h/o drug abuse long time back Wt loss Plan: Plan of Care Restart Zosyn F/U Sputum and BC Pulm consulted May need bronch and or IR drainage if no response to antibiotic treatment F/U Labs Thank you MAYURI ROBERTSON MD Sep 25, 2020 13:27
[2020-09-25 13:51] LABS: BASO # 0.2 x10^3/uL (0.0-0.2); BASO % 1 % (0-3); EOS % 0 % (0-3); HEMATOCRIT 35.6 % (39.0-53.0); HEMOGLOBIN 11.6 g/dL (13.0-17.5); LYMPH # 3.3 x10^3/uL (1.0-4.8); LYMPH % 17 % (24-48); MEAN CORPUSCULAR HEMOGLOBIN 29 pg (25-35); MEAN CORPUSCULAR HGB CONC 33 g/dL (31-37); MEAN CORPUSCULAR VOLUME 89 fL (79-100); MONO # 1.7 x10^3/uL (0.0-1.1); MONO % 9 % (0-9); NEUT # 14.2 x10^3/uL (1.8-7.7); NEUT % 73 % (31-73); PLATELET COUNT 662 x10^3/uL (140-400); WHITE BLOOD COUNT 19.4 x10^3/uL (4.0-11.0)
[2020-09-25 14:01] LABS: CALCIUM 7.8 mg/dL (8.5-10.1); CREATININE 0.8 mg/dL (0.7-1.3); GFR 116.9; MAGNESIUM 2.3 mg/dL (1.8-2.4); PHOSPHORUS 3.6 mg/dL (2.6-4.7); POTASSIUM 4.6 mmol/L (3.5-5.1)
[2020-09-25 15:00] VITALS: BP 110/62
--- NOTE | 2020-09-25 18:12 | PDOC ---
[facility] PROGRESS NOTE Date of Service DOS: DATE: 09/25/20 TIME: 18:08 Chief Complaint Chief Complaint Right lower lobe pneumonia with cavitary lesion, possible gram-negative organism, possible staph aureus, possible aspiration normocytic anemia due to chronic inflammation thrombocytosis suggestive of reactive to infection mild hyponatremia severe protein malnutrition incarcerated Admit to medicine for further management consider IR consult for abscess drainage via bronch or CT guidance if no improvement Pulm consult ID consult IV Vanc/Zosyn continue IV fluids Pending BLood Cx Pending HIV Lovenox for DVT prophylaxis Reg Diet FULL code DPOA: Undesignated History of Present Illness History of Present Illness 09/25/20 No acute events overnight. Pending MRSA PCR. HIV -. Continue Vanc/Zosyn. > 50% time spent in patient chart, labs, and image review and discussion with RN and SW 25-year-old male with PMHx of IVDA 6 years ago, Hx of childhood asthma, and incarcerated 1 year ago comes [facility] due to Cough and shortness of breath for 2 weeks. Apparently, patient had a cough 2 months ago but did not do much about it at that time. With this presenation, patient was unable to sleep and had more production with riya brown malodorous sputum. He felt as if something was draining from his lungs when lying down on his Right side. Patient was is on antibiotics but reports no improvement in symptoms. Patient denies any fever, chest pain, dysuria, or bloody stools.. Vitals/I&O Vitals/I&O: Vital Signs Date Time Temp Pulse Resp B/P (MAP) Pulse Ox O2 Delivery O2 Flow Rate FiO2 09/25/20 15:00 97.5 86 18 110/62 (78) 94 Room Air 97.5 I & O 09/24/20 09/24/20 09/25/20 15:00 23:00 07:00 Intake Total 2100 ml Balance 2100 ml Labs Labs: Laboratory Tests Test 09/24/20 18:35 09/24/20 18:40 09/24/20 21:18 09/25/20 00:10 Urine Collection Type Unknown Urine Color Yellow Urine Clarity Clear Urine pH 6.0 (<5.0-8.0) Urine Specific [place] <=1.005 (1.000-1.030) Urine Protein Negative mg/dL (NEG-TRACE) Urine Glucose (UA) Negative mg/dL (NEG) Urine Ketones (Stick) Negative mg/dL (NEG) Urine Blood Negative (NEG) Urine Nitrite Negative (NEG) Urine Bilirubin Negative (NEG) Urine Urobilinogen Dipstick 0.2 mg/dL (0.2 mg/dL) Urine Leukocyte Esterase Negative (NEG) Urine RBC 0 /HPF (0-2) Urine WBC 1-4 /HPF (0-4) Urine Bacteria 0 /HPF (0-FEW) White Blood Count 18.9 x10^3/uL (4.0-11.0) Red Blood Count 4.00 x10^6/uL (4.30-5.70) Hemoglobin 11.7 g/dL (13.0-17.5) Hematocrit 34.7 % (39.0-53.0) Mean Corpuscular Volume 87 fL (79-100) Mean Corpuscular Hemoglobin 29 pg (25-35) Mean Corpuscular Hemoglobin Concent 34 g/dL (31-37) Red Cell Distribution Width 15.2 % (11.5-14.5) Platelet Count 651 x10^3/uL (140-400) Neutrophils (%) (Auto) 91 % (31-73) Lymphocytes (%) (Auto) 7 % (24-48) Monocytes (%) (Auto) 3 % (0-9) Eosinophils (%) (Auto) 0 % (0-3) Basophils (%) (Auto) 0 % (0-3) Neutrophils # (Auto) 17.1 x10^3/uL (1.8-7.7) Lymphocytes # (Auto) 1.2 x10^3/uL (1.0-4.8) Monocytes # (Auto) 0.5 x10^3/uL (0.0-1.1) Eosinophils # (Auto) 0.0 x10^3/uL (0.0-0.7) Basophils # (Auto) 0.1 x10^3/uL (0.0-0.2) Segmented Neutrophils % 80 % (35-66) Band Neutrophils % 10 % (0-9) Lymphocytes % 6 % (24-48) Metamyelocytes % 4 % (0-0) Platelet Estimate Increased (ADEQUATE) D-Dimer (Kristen) 1.71 ug/mlFEU (0.00-0.50) Sodium Level 133 mmol/L (136-145) Potassium Level 4.4 mmol/L (3.5-5.1) Chloride Level 99 mmol/L (98-107) Carbon Dioxide Level 27 mmol/L (21-32) Anion Gap 7 (6-14) Blood Urea Nitrogen 10 mg/dL (8-26) Creatinine 0.8 mg/dL (0.7-1.3) Estimated GFR (Cockcroft-Gault) 116.9 BUN/Creatinine Ratio 13 (6-20) Glucose Level 124 mg/dL (70-99) Lactic Acid Level 1.2 mmol/L (0.4-2.0) Calcium Level 8.4 mg/dL (8.5-10.1) Magnesium Level 2.4 mg/dL (1.8-2.4) Total Bilirubin 0.4 mg/dL (0.2-1.0) Aspartate Amino Transf (AST/SGOT) 43 U/L (15-37) Alanine Aminotransferase (ALT/SGPT) 50 U/L (16-63) Alkaline Phosphatase 57 U/L (46-116) Troponin I Quantitative < 0.017 ng/mL (0.000-0.055) < 0.017 ng/mL (0.000-0.055) < 0.017 ng/mL (0.000-0.055) ZW-Zyc-B-Type Natriuretic Peptide 83 pg/mL (0-124) Total Protein 7.2 g/dL (6.4-8.2) Albumin 1.7 g/dL (3.4-5.0) Albumin/Globulin Ratio 0.3 (1.0-1.7) Procalcitonin 0.35 ng/mL (0.00-0.10) HIV (1&2) Antibody Screen Nonreactive (Nonreactive) Test 09/25/20 06:20 White Blood Count 19.4 x10^3/uL (4.0-11.0) Red Blood Count 4.00 x10^6/uL (4.30-5.70) Hemoglobin 11.6 g/dL (13.0-17.5) Hematocrit 35.6 % (39.0-53.0) Mean Corpuscular Volume 89 fL (79-100) Mean Corpuscular Hemoglobin 29 pg (25-35) Mean Corpuscular Hemoglobin Concent 33 g/dL (31-37) Red Cell Distribution Width 15.0 % (11.5-14.5) Platelet Count 662 x10^3/uL (140-400) Neutrophils (%) (Auto) 73 % (31-73) Lymphocytes (%) (Auto) 17 % (24-48) Monocytes (%) (Auto) 9 % (0-9) Eosinophils (%) (Auto) 0 % (0-3) Basophils (%) (Auto) 1 % (0-3) Neutrophils # (Auto) 14.2 x10^3/uL (1.8-7.7) Lymphocytes # (Auto) 3.3 x10^3/uL (1.0-4.8) Monocytes # (Auto) 1.7 x10^3/uL (0.0-1.1) Eosinophils # (Auto) 0.0 x10^3/uL (0.0-0.7) Basophils # (Auto) 0.2 x10^3/uL (0.0-0.2) Sodium Level 136 mmol/L (136-145) Potassium Level 4.6 mmol/L (3.5-5.1) Chloride Level 104 mmol/L (98-107) Carbon Dioxide Level 25 mmol/L (21-32) Anion Gap 7 (6-14) Blood Urea Nitrogen 15 mg/dL (8-26) Creatinine 0.8 mg/dL (0.7-1.3) Estimated GFR (Cockcroft-Gault) 116.9 Glucose Level 96 mg/dL (70-99) Calcium Level 7.8 mg/dL (8.5-10.1) Phosphorus Level 3.6 mg/dL (2.6-4.7) Magnesium Level 2.3 mg/dL (1.8-2.4) Assessment and Plan Assessmemt and Plan Problems Medical Problems: (1) Leukocytosis Status: Acute Comment Review of Relevant I have reviewed the following items agustin (where applicable) has been applied. Medications: Current Medications Medications (Trade) Dose Ordered Sig/Ayaka Route PRN Reason Start Time Stop Time Status Last Admin Dose Admin Iohexol (Omnipaque 350 Mg/ml) 100 ml 1X ONCE IV 09/24/20 19:30 09/24/20 19:33 DC 09/24/20 19:47 Sodium Chloride 2,250 ml @ 2,250 mls/hr Q1H IV 09/24/20 20:15 09/24/20 20:58 DC 09/24/20 20:28 Piperacillin Sod/ Tazobactam Sod 4.5 gm/Sodium Chloride 100 ml @ 200 mls/hr 1X ONCE IV 09/24/20 21:00 09/24/20 21:29 DC 09/24/20 21:16 Vancomycin HCl (Vanco Per Pharmacy) 1 each 1X ONCE [facility] 09/24/20 20:15 09/24/20 20:57 DC 09/24/20 22:00 Sodium Chloride 1,000 ml @ 100 mls/hr Q10H IV 09/24/20 20:30 09/25/20 09:01 Acetaminophen (Tylenol) 650 mg PRN Q4HRS PRN PO TEMP OVER 100.4F OR MILD PAIN 09/24/20 20:30 09/25/20 16:21 Enoxaparin Sodium (Lovenox 40mg Syringe) 40 mg Q24H SQ 09/25/20 09:00 09/25/20 08:56 Vancomycin HCl 1.75 gm/Sodium Chloride 500 ml @ 250 mls/hr 1X ONCE IV 09/24/20 21:30 09/24/20 23:29 DC 09/24/20 22:47 Sodium Chloride 1,000 ml @ 125 mls/hr 1X ONCE IV 09/24/20 22:45 09/25/20 06:44 DC 09/24/20 22:47 Piperacillin Sod/ Tazobactam Sod 3.375 gm/Sodium Chloride 50 ml @ 100 mls/hr Q6HRS IV 09/25/20 12:00 09/25/20 17:07 Justifications for Admission Other Justification Pneumonia JACK ARELLANO MD Sep 25, 2020 18:11
[2020-09-25] MEDS: LINEZOLID 600 MG TABLET PO SCH (18:13)
[2020-09-25 19:30] VITALS: BP 109/64
[2020-09-25] MEDS: LACTOBACILLUS RHAMNOSUS GG 1 CAPSULE. PO SCH (21:16)
[2020-09-25 23:18] VITALS: BP 118/70
[2020-09-26] MEDS: PIPERACILLIN/TAZOBACTAM 3.375 GM in IV NORMAL SALINE 50ML 50 ML IV SCH ×5 (00:30→23:45)
[2020-09-26 03:11] VITALS: BP 115/66
--- NOTE | 2020-09-26 04:22 | CONS ---
DATE OF CONSULTATION: 09/25/2020 ATTENDING PHYSICIAN: Dr. Simons. REASON FOR CONSULTATION: The patient is seen in pulmonary consultation at the request of Dr. Simons for lung abscess. HISTORY OF PRESENT ILLNESS: The patient is a 25-year-old that has been incarcerated for approximately a year, has been sick now for quite some time, treated as an outpatient for pneumonia, he had failed. He was admitted. CT chest was obtained revealing cavitary right lower lobe lesion along with a necrotic lung. There is a small right-sided effusion. I was asked to see him in consultation. The patient is being seen by Infectious Disease Service and currently started on Zosyn. The patient reports some hemoptysis about 2 weeks ago, none recently. Denies fever, chills or night sweats. He has been tested in the past for COVID-19. He also had a PPD placement upon admission to the [facility]. PAST MEDICAL HISTORY: Otherwise no past medical history, did have IV drug use 6 years ago. He has childhood asthma. ALLERGIES: No known drug allergies. FAMILY HISTORY: Noncontributory. SOCIAL HISTORY: He is currently incarcerated. REVIEW OF SYSTEMS: As indicated above, otherwise, a 10-point system was reviewed and negative. PHYSICAL EXAMINATION: VITAL SIGNS: Stable. O2 saturation was greater than 92%. LUNGS: Rales on the right. No wheezes. CARDIOVASCULAR: Regular rate and rhythm with S1, S2. No S3. ABDOMEN: Soft, nontender, nondistended. EXTREMITIES: No clubbing, cyanosis or pitting edema. NEUROLOGICAL: The patient was awake, alert, following commands. A detailed neuro exam was not performed. LABORATORY DATA: Serology for his HIV was negative. UA was noted. Procalcitonin was 0.375. White count was elevated. Hemoglobin and hematocrit were noted. IMPRESSION: 1. Abnormal CT revealing right-sided necrotizing pneumonia along with cavitary lesion. 2. Small right-sided effusion. 3. Leukocytosis. 4. History of drug use. PLAN: 1. Continue Zosyn. 2. We will add MRSA coverage. Check nasal PCR. 3. Will monitor for clinical symptoms. If no improvement, we will consider bronchoscopy. 4. No need to have interventional radiologist to drain for now, the patient may require a total of approximately 2 months of oral antibiotics covering anaerobes. I do appreciate the privilege in sharing in the patient's care. ANICETO CONKLIN MD DR: JAY/ernesto JOB#: [id number] / [id number]
[2020-09-26] MEDS: IV NORMAL SALINE 1000ML BAG 1,000 ML IV SCH ×4 (06:05→23:46)
--- NOTE | 2020-09-26 06:23 | CONS ---
DATE OF CONSULTATION: 09/25/2020 REFERRING PHYSICIAN: Margo Ramirez REASON FOR CONSULTATION: Antibiotic management for lung infection. HISTORY OF PRESENT ILLNESS: A 25-year-old inmate who presented to the ER on 09/24/2020 with 2 security guards to be evaluated for cough and shortness of breath, which worsened over the last 2 weeks, but onset was about 2 months ago. The patient had been on antibiotics without any improvement. He denies any fevers, had subjective chills. The patient has lost 20 pounds in the last 2 months. He had COVID testing done [facility], which is reported negative. The patient was afebrile. White count was 18,000 with a hemoglobin of 11.7 and platelets of 651, bands of 10, segments of 80. Procalcitonin was 0.35, lactate was 1.3, sodium was 133, normal troponin, normal BNP, albumin of 1.7. Chest x-ray revealed consolidative opacity right lower lobe with right pleural effusion. This may be infectious or inflammatory process. CT chest showed right lower lobe pneumonia with cavitary lesion in the right lower lobe measuring about 6.1 x 2.4 with internal air and fluid favoring abscess. A small right pleural effusion noted. No pulmonary embolus identified with the main lobar or segmental pulmonary arteries. The patient was started on IV vancomycin and Zosyn one-time dose. ID consultation has been requested for antibiotic management. Today, the patient basically feels the same in bringing up greenish-yellow purulent sputum production, no blood. There is subjective chills. No nausea, vomiting, headache, sore throat, ear pain, drainage, diarrhea, abdominal pain, symptoms or rash. PAST MEDICAL HISTORY: None. PAST SURGICAL HISTORY: None. ALLERGIES: CEFACLOR, UNKNOWN REACTION. Has tolerated amoxicillin well. FAMILY HISTORY: Noncontributory. SOCIAL HISTORY: Positive for smoking, but quit a year ago. No alcohol. No illicit drug use. History of IVDU in the past, couple of years ago. Marijuana use. Originally from [place]. Denies any travel outside the country. No history of exposure to TB. No pets at home. None of his inmates are sick. Denies any history of HIV, [facility] per the patient' CURRENT MEDICATIONS: One-time dose of Zosyn and vancomycin. Currently, no antibiotics. Other medications reviewed in medication list. REVIEW OF SYSTEMS: Negative except for above in HPI. PHYSICAL EXAMINATION: VITAL SIGNS: Temperature 98, pulse 84, respiratory rate 18, blood pressure 104/54, oxygen saturation 95% on room air. GENERAL: Alert, oriented x 3 male lying in bed comfortably, in no acute distress. construction site crossing guard is at bedside. HEENT: Normocephalic, atraumatic. Anicteric. Oropharynx clear. No thrush. Dentition fair. NECK: Supple, no JVD, no lymphadenopathy. LUNGS: Decreased breath sounds at the right base. No wheezing. HEART: S1, S2, no murmurs. ABDOMEN: Soft, nontender, nondistended, no rebound or guarding. EXTREMITIES: No edema, no cyanosis. DERMATOLOGIC: Warm, dry. No generalized rash. Multiple tattoos. NEUROLOGIC: Alert and oriented x 3. Grossly nonfocal. PSYCHIATRIC: Cooperative, appropriate mood and affect. LABORATORY DATA: WBC 19.4, was 18.9; hemoglobin 11.6, hematocrit 35.6, platelets 662, bands were 10 yesterday, segments of 80. Sodium 130 with potassium 4.4, chloride 99, bicarbonate 27, BUN 10, creatinine 0.8, lactate 1.2, procalcitonin 0.35. Troponin normal. BNP normal. Albumin 1.7. HIV negative. IMAGING DATA: Chest x-ray as above. CT chest as above. IMPRESSION: 1. Large cavitary lesion with air fluid level in the right lower lobe, working diagnosis is pulmonary abscess. 2. Small right pleural effusion. 3. Anemia. 4. Thrombocytosis, likely reactive. 5. Mild hyponatremia. 6. Incarceration. 7. Severe protein-calorie malnutrition. 8. Weight loss of 20 pounds in the last 2 months 9. history of smoking and marijuana use in the past, none recently per the patient's report. History of remote IVDU. RECOMMENDATIONS: 1. We will restart Zosyn. DC IV Vancomycin 2. Follow up sputum cultures. 3. Follow up blood cultures. 4. HIV negative. 5. Pulmonary consulted. 6. If the patient does not respond to antibiotic treatment, he may need further evaluation including bronchoscopy and/or IR drainage. 7. Monitor labs and cultures. 8. Continue supportive care. Thank you for allowing me to participate in this patient's care. If you have any questions, do not hesitate to contact me. MAYURI ROBERTSON MD DR: [email or web address] JOB#: [id number] / [id number] MINGO
[2020-09-26 07:00] VITALS: BP 116/67
--- NOTE | 2020-09-26 08:00 | NUR ---
Veronicax held for procedure.
[2020-09-26] MEDS: LACTOBACILLUS RHAMNOSUS GG 1 CAPSULE. PO SCH ×2 (08:40→20:59)
[2020-09-26] MEDS: LINEZOLID 600 MG TABLET PO SCH ×2 (08:40→20:59)
[2020-09-26] MEDS: ENOXAPARIN 40 MG/0.4 ML SYRINGE. SQ SCH (08:41)
--- NOTE | 2020-09-26 09:19 | PDOC ---
PULMONARY PROGRESS NOTES DATE: 09/26/20 TIME: 09:19 Subjective Patient not more short of air. Does not feel any better. Vitals Vital Signs Date Time Temp Pulse Resp B/P (MAP) Pulse Ox O2 Delivery O2 Flow Rate FiO2 09/26/20 07:00 98.1 89 18 116/67 (83) 95 Room Air 98.1 ROS: No Nausea, No Chest Pain, No Abdominal Pain, No Increase Cough General: Alert Lungs: Crackles Cardiovascular: S1, S2 Abdomen: Soft Neuro Exam: Alert Extremities: No Edema Skin: Warm Labs Laboratory Tests Test 09/24/20 18:35 09/24/20 18:40 09/24/20 21:18 09/25/20 00:10 Urine Collection Type Unknown Urine Color Yellow Urine Clarity Clear Urine pH 6.0 (<5.0-8.0) Urine Specific [place] <=1.005 (1.000-1.030) Urine Protein Negative mg/dL (NEG-TRACE) Urine Glucose (UA) Negative mg/dL (NEG) Urine Ketones (Stick) Negative mg/dL (NEG) Urine Blood Negative (NEG) Urine Nitrite Negative (NEG) Urine Bilirubin Negative (NEG) Urine Urobilinogen Dipstick 0.2 mg/dL (0.2 mg/dL) Urine Leukocyte Esterase Negative (NEG) Urine RBC 0 /HPF (0-2) Urine WBC 1-4 /HPF (0-4) Urine Bacteria 0 /HPF (0-FEW) White Blood Count 18.9 x10^3/uL (4.0-11.0) Red Blood Count 4.00 x10^6/uL (4.30-5.70) Hemoglobin 11.7 g/dL (13.0-17.5) Hematocrit 34.7 % (39.0-53.0) Mean Corpuscular Volume 87 fL (79-100) Mean Corpuscular Hemoglobin 29 pg (25-35) Mean Corpuscular Hemoglobin Concent 34 g/dL (31-37) Red Cell Distribution Width 15.2 % (11.5-14.5) Platelet Count 651 x10^3/uL (140-400) Neutrophils (%) (Auto) 91 % (31-73) Lymphocytes (%) (Auto) 7 % (24-48) Monocytes (%) (Auto) 3 % (0-9) Eosinophils (%) (Auto) 0 % (0-3) Basophils (%) (Auto) 0 % (0-3) Neutrophils # (Auto) 17.1 x10^3/uL (1.8-7.7) Lymphocytes # (Auto) 1.2 x10^3/uL (1.0-4.8) Monocytes # (Auto) 0.5 x10^3/uL (0.0-1.1) Eosinophils # (Auto) 0.0 x10^3/uL (0.0-0.7) Basophils # (Auto) 0.1 x10^3/uL (0.0-0.2) Segmented Neutrophils % 80 % (35-66) Band Neutrophils % 10 % (0-9) Lymphocytes % 6 % (24-48) Metamyelocytes % 4 % (0-0) Platelet Estimate Increased (ADEQUATE) D-Dimer (Kristen) 1.71 ug/mlFEU (0.00-0.50) Sodium Level 133 mmol/L (136-145) Potassium Level 4.4 mmol/L (3.5-5.1) Chloride Level 99 mmol/L (98-107) Carbon Dioxide Level 27 mmol/L (21-32) Anion Gap 7 (6-14) Blood Urea Nitrogen 10 mg/dL (8-26) Creatinine 0.8 mg/dL (0.7-1.3) Estimated GFR (Cockcroft-Gault) 116.9 BUN/Creatinine Ratio 13 (6-20) Glucose Level 124 mg/dL (70-99) Lactic Acid Level 1.2 mmol/L (0.4-2.0) Calcium Level 8.4 mg/dL (8.5-10.1) Magnesium Level 2.4 mg/dL (1.8-2.4) Total Bilirubin 0.4 mg/dL (0.2-1.0) Aspartate Amino Transf (AST/SGOT) 43 U/L (15-37) Alanine Aminotransferase (ALT/SGPT) 50 U/L (16-63) Alkaline Phosphatase 57 U/L (46-116) Troponin I Quantitative < 0.017 ng/mL (0.000-0.055) < 0.017 ng/mL (0.000-0.055) < 0.017 ng/mL (0.000-0.055) BD-Mnz-M-Type Natriuretic Peptide 83 pg/mL (0-124) Total Protein 7.2 g/dL (6.4-8.2) Albumin 1.7 g/dL (3.4-5.0) Albumin/Globulin Ratio 0.3 (1.0-1.7) Procalcitonin 0.35 ng/mL (0.00-0.10) HIV (1&2) Antibody Screen Nonreactive (Nonreactive) Test 09/25/20 06:20 White Blood Count 19.4 x10^3/uL (4.0-11.0) Red Blood Count 4.00 x10^6/uL (4.30-5.70) Hemoglobin 11.6 g/dL (13.0-17.5) Hematocrit 35.6 % (39.0-53.0) Mean Corpuscular Volume 89 fL (79-100) Mean Corpuscular Hemoglobin 29 pg (25-35) Mean Corpuscular Hemoglobin Concent 33 g/dL (31-37) Red Cell Distribution Width 15.0 % (11.5-14.5) Platelet Count 662 x10^3/uL (140-400) Neutrophils (%) (Auto) 73 % (31-73) Lymphocytes (%) (Auto) 17 % (24-48) Monocytes (%) (Auto) 9 % (0-9) Eosinophils (%) (Auto) 0 % (0-3) Basophils (%) (Auto) 1 % (0-3) Neutrophils # (Auto) 14.2 x10^3/uL (1.8-7.7) Lymphocytes # (Auto) 3.3 x10^3/uL (1.0-4.8) Monocytes # (Auto) 1.7 x10^3/uL (0.0-1.1) Eosinophils # (Auto) 0.0 x10^3/uL (0.0-0.7) Basophils # (Auto) 0.2 x10^3/uL (0.0-0.2) Sodium Level 136 mmol/L (136-145) Potassium Level 4.6 mmol/L (3.5-5.1) Chloride Level 104 mmol/L (98-107) Carbon Dioxide Level 25 mmol/L (21-32) Anion Gap 7 (6-14) Blood Urea Nitrogen 15 mg/dL (8-26) Creatinine 0.8 mg/dL (0.7-1.3) Estimated GFR (Cockcroft-Gault) 116.9 Glucose Level 96 mg/dL (70-99) Calcium Level 7.8 mg/dL (8.5-10.1) Phosphorus Level 3.6 mg/dL (2.6-4.7) Magnesium Level 2.3 mg/dL (1.8-2.4) Impression . IMPRESSION: 1. Abnormal CT revealing right-sided necrotizing pneumonia along with cavitary lesion. 2. Small right-sided effusion. 3. Leukocytosis. 4. History of drug use. Plan . Updated 09/26 Patient not improving Leukocytosis persists Continue empiric antibiotics We will discuss with ID, the possibility of undergoing bronchoscopy I have informed the patient that he may require bronchoscopy, risk benefits and alternatives reviewed with patient. 09/25 PLAN: 1. Continue Zosyn. 2. We will add MRSA coverage. Check nasal PCR. 3. Will monitor for clinical symptoms. If no improvement, we will consider bronchoscopy. 4. No need to have interventional radiologist to drain for now, the patient may require a total of approximately 2 months of oral antibiotics covering anaerobes. I do appreciate the privilege in sharing in the patient's care. ANICETO CONKLIN MD Sep 26, 2020 09:19
--- NOTE | 2020-09-26 09:40 | PDOC ---
Infectious Disease Note Subjective: Subjective Patient feels the same Vital Signs: Vital Signs Vital Signs Date Time Temp Pulse Resp B/P (MAP) Pulse Ox O2 Delivery O2 Flow Rate FiO2 09/26/20 07:00 98.1 89 18 116/67 (83) 95 Room Air 98.1 Physical Exam: PHYSICAL EXAM GENERAL: Alert, oriented x 3 male lying in bed comfortably, in no acute distress. lifeguard is at bedside. HEENT: Normocephalic, atraumatic. Anicteric. Oropharynx clear. No thrush. Dentition fair. NECK: Supple, no JVD, no lymphadenopathy. LUNGS: Decreased breath sounds at the right base. No wheezing. HEART: S1, S2, no murmurs. ABDOMEN: Soft, nontender, nondistended, no rebound or guarding. EXTREMITIES: No edema, no cyanosis. DERMATOLOGIC: Warm, dry. No generalized rash. Multiple tattoos. NEUROLOGIC: Alert and oriented x 3. Grossly nonfocal. PSYCHIATRIC: Cooperative, appropriate mood and affect. Medications: Inpatient Meds: Medications reviewed. Objective: Assessment: Right lower lobe pneumonia with cavitary lesion,air fluid level likely lung abscess Leucocytosis Anemia and thrombocytosis likely from infection Hyponatremia Incarcerated H/O smoking , marijhuana use in the past, h/o drug abuse long time back Wt loss Plan: Plan of Care Continue current antibiotic treatment Follow-up GPC and GNR in sputum culture Blood cultures negative so far Monitor labs Continue supportive care MAYURI ROBERTSON MD Sep 26, 2020 09:40
[2020-09-26 11:08] VITALS: BP 115/63
--- NOTE | 2020-09-26 12:28 | PDOC ---
[facility] PROGRESS NOTE Date of Service DOS: DATE: 09/26/20 TIME: 12:27 Chief Complaint Chief Complaint Right lower lobe necrotizing pneumonia with cavitary lesion, possible gram- negative organism, possible staph aureus, possible aspiration normocytic anemia due to chronic inflammation thrombocytosis suggestive of reactive to infection mild hyponatremia severe protein malnutrition incarcerated Admit to medicine for further management consider IR consult for abscess drainage via bronch or CT guidance if no improvement Pulm consult ID consult IV Vanc/Zosyn continue IV fluids Pending BLood Cx Pending HIV Lovenox for DVT prophylaxis Reg Diet FULL code DPOA: Undesignated History of Present Illness History of Present Illness 09/26/2020 No acute events overnight. Afebrile. T-max of 99.6. Continue IV vancomycin and Zosyn. Patient's chart, labs, images were reviewed and discussed with RN 09/25/20 No acute events overnight. Pending MRSA PCR. HIV -. Continue Vanc/Zosyn. > 50% time spent in patient chart, labs, and image review and discussion with RN and LEVON 25-year-old male with PMHx of IVDA 6 years ago, Hx of childhood asthma, and incarcerated 1 year ago [facility] due to Cough and shortness of breath for 2 weeks. Apparently, patient had a cough 2 months ago but did not do much about it at that time. With this presenation, patient was unable to sleep and had more production with riya brown malodorous sputum. He felt as if something was draining from his lungs when lying down on his Right side. Patient was is on antibiotics but reports no improvement in symptoms. Patient denies any fever, chest pain, dysuria, or bloody stools.. Vitals/I&O Vitals/I&O: Vital Signs Date Time Temp Pulse Resp B/P (MAP) Pulse Ox O2 Delivery O2 Flow Rate FiO2 09/26/20 11:08 97.3 81 18 115/63 (80) 95 Room Air 97.3 I & O 09/25/20 09/25/20 09/26/20 15:00 23:00 07:00 Intake Total 540 ml Balance 540 ml Physical Exam Physical Exam: GENERAL: Alert, oriented x 3 male lying in bed comfortably, in no acute distress. guard lieutenant is at bedside. HEENT: Normocephalic, atraumatic. Anicteric. Oropharynx clear. No thrush. Dentition fair. NECK: Supple, no JVD, no lymphadenopathy. LUNGS: Decreased breath sounds at the right base. No wheezing. HEART: S1, S2, no murmurs. ABDOMEN: Soft, nontender, nondistended, no rebound or guarding. EXTREMITIES: No edema, no cyanosis. DERMATOLOGIC: Warm, dry. No generalized rash. Multiple tattoos. NEUROLOGIC: Alert and oriented x 3. Grossly nonfocal. PSYCHIATRIC: Cooperative, appropriate mood and affect. Assessment and Plan Assessmemt and Plan Problems Medical Problems: (1) Leukocytosis Status: Acute Comment Review of Relevant I have reviewed the following items agustin (where applicable) has been applied. Medications: Current Medications Medications (Trade) Dose Ordered Sig/Ayaka Route PRN Reason Start Time Stop Time Status Last Admin Dose Admin Lactobacillus Rhamnosus (Culturelle) 1 cap BID PO 09/25/20 21:00 09/26/20 08:40 Linezolid (Zyvox) 600 mg BID PO 09/25/20 17:30 09/26/20 08:40 Justifications for Admission Other Justification Pneumonia JACK ARELLANO MD Sep 26, 2020 12:28
[2020-09-26 15:47] VITALS: BP 116/69
[2020-09-26 19:00] VITALS: BP 107/67
[2020-09-26] MEDS: ACETAMINOPHEN 325 MG TABLET. PO PRN (22:34)
[2020-09-26 23:00] VITALS: BP 120/67
[2020-09-26] MEDS: guaiFENesin DM 200MG/20MG 10 ML SYRUP PO PRN (23:45)
[2020-09-26] MEDS: MORPHINE SULFATE 2 MG/ML VIAL. IV PRN (23:49)
[2020-09-27 03:00] VITALS: BP 113/65
[2020-09-27] MEDS: PIPERACILLIN/TAZOBACTAM 3.375 GM in IV NORMAL SALINE 50ML 50 ML IV SCH ×4 (05:17→23:45)
[2020-09-27 07:00] VITALS: BP 113/62
[2020-09-27] MEDS: ENOXAPARIN 40 MG/0.4 ML SYRINGE. SQ SCH (07:20)
[2020-09-27] MEDS: LINEZOLID 600 MG TABLET PO SCH ×2 (08:13→20:19)
[2020-09-27] MEDS: LACTOBACILLUS RHAMNOSUS GG 1 CAPSULE. PO SCH ×2 (08:13→20:19)
[2020-09-27] MEDS ORDERED: LIDOCAINE 1% Multi-Dose 20 ML VIAL. INJ PRN (08:15)
[2020-09-27] MEDS ORDERED: ALBUTEROL SULFATE 2.5 MG/3 ML NEBU. NEB PRN (08:15)
[2020-09-27] MEDS ORDERED: EPINEPHrine 1 MG/ML VIAL INJ PRN (08:15)
[2020-09-27] MEDS ORDERED: LIDOCAINE 4% TOPICAL 50 ML SOLUTION. MM PRN (08:15)
[2020-09-27] MEDS ORDERED: LIDOCAINE 2% VISCOUS 100 ML BOTTLE. MM PRN (08:15)
--- NOTE | 2020-09-27 08:38 | PDOC ---
Infectious Disease Note Subjective: Subjective Patient feels the same Needs to have greenish sputum production No fevers or diarrhea Vital Signs: Vital Signs Vital Signs Date Time Temp Pulse Resp B/P (MAP) Pulse Ox O2 Delivery O2 Flow Rate FiO2 09/27/20 07:00 98.6 91 18 113/62 (79) 94 Room Air 98.6 Physical Exam: PHYSICAL EXAM GENERAL: Alert, oriented x 3 male lying in bed comfortably, in no acute distress. guard supervisor is at bedside. HEENT: Normocephalic, atraumatic. Anicteric. Oropharynx clear. No thrush. Dentition fair. NECK: Supple, no JVD, no lymphadenopathy. LUNGS: Decreased breath sounds at the right base. No wheezing. HEART: S1, S2, no murmurs. ABDOMEN: Soft, nontender, nondistended, no rebound or guarding. EXTREMITIES: No edema, no cyanosis. DERMATOLOGIC: Warm, dry. No generalized rash. Multiple tattoos. NEUROLOGIC: Alert and oriented x 3. Grossly nonfocal. PSYCHIATRIC: Cooperative, appropriate mood and affect. Medications: Inpatient Meds: Medications reviewed. Labs: Lab Laboratory Tests Test 09/26/20 19:30 SARS-CoV-2 RNA (BEATA) Negative (Negative) SARS-CoV-2 Antigen (Rapid) Negative (NEGATIVE) Objective: Assessment: Right lower lobe pneumonia with cavitary lesion,air fluid level likely lung abscess Leucocytosis Anemia and thrombocytosis likely from infection Hyponatremia Incarcerated H/O smoking , marijhuana use in the past, h/o drug abuse long time back Wt loss Plan: Plan of Care Continue current antibiotic treatment Follow-up GPC and GNR in sputum culture, still pending Blood cultures negative so far, HIV and COVID-19 negative Pulmonary team is planning for bronchoscopy Monitor labs and cultures Continue supportive care MAYURI ROBERTSON MD Sep 27, 2020 08:38
--- NOTE | 2020-09-27 09:43 | PDOC ---
PULMONARY PROGRESS NOTES DATE: 09/27/20 TIME: 09:43 Subjective Patient still short of air, no hemoptysis Vitals Vital Signs Date Time Temp Pulse Resp B/P (MAP) Pulse Ox O2 Delivery O2 Flow Rate FiO2 09/27/20 07:00 98.6 91 18 113/62 (79) 94 Room Air 98.6 ROS: No Nausea, No Chest Pain, No Abdominal Pain, No Increase Cough General: Alert Lungs: Crackles Cardiovascular: S1, S2 Abdomen: Soft Neuro Exam: Alert Extremities: No Edema Skin: Warm Labs Laboratory Tests Test 09/25/20 18:00 09/26/20 19:30 Nasal Screen MRSA (PCR) Negative (NEGATIVE) SARS-CoV-2 RNA (BEATA) Negative (Negative) SARS-CoV-2 Antigen (Rapid) Negative (NEGATIVE) Laboratory Tests Test 09/26/20 19:30 SARS-CoV-2 RNA (BEATA) Negative (Negative) SARS-CoV-2 Antigen (Rapid) Negative (NEGATIVE) Impression . IMPRESSION: 1. Abnormal CT revealing right-sided necrotizing pneumonia along with cavitary lesion. 2. Small right-sided effusion. 3. Leukocytosis. 4. History of drug use. 5. HIV testing negative 6. Nasal PCR for MRSA negative Plan . Updated 09/27 Proceed with bronchoscopy, risk benefits and alternatives reviewed with patient he consented Case discussed with infectious disease service, Continue empiric antibiotics Updated 09/26 Patient not improving Leukocytosis persists Continue empiric antibiotics We will discuss with ID, the possibility of undergoing bronchoscopy I have informed the patient that he may require bronchoscopy, risk benefits and alternatives reviewed with patient. 09/25 PLAN: 1. Continue Zosyn. 2. We will add MRSA coverage. Check nasal PCR. 3. Will monitor for clinical symptoms. If no improvement, we will consider bronchoscopy. 4. No need to have interventional radiologist to drain for now, the patient may require a total of approximately 2 months of oral antibiotics covering anaerobes. I do appreciate the privilege in sharing in the patient's care. ANICETO CONKLIN MD Sep 27, 2020 09:43
[2020-09-27] MEDS ORDERED: IV RINGERS,LACTATED 1000ML 1,000 ML IV ONE (09:45)
[2020-09-27] MEDS ORDERED: IV RINGERS,LACTATED 1000ML 1,000 ML IV SCH (10:30)
[2020-09-27 11:00] VITALS: BP 116/66
[2020-09-27] MEDS ORDERED: LIDOCAINE 1% Multi-Dose 20 ML VIAL. ONE (11:18)
[2020-09-27] MEDS ORDERED: EPINEPHrine 1 MG/ML VIAL ONE (11:18)
[2020-09-27] MEDS ORDERED: LIDOCAINE 2% VISCOUS 100 ML BOTTLE. ONE (11:18)
[2020-09-27] MEDS ORDERED: LIDOCAINE 4% TOPICAL 50 ML SOLUTION. ONE (11:18)
[2020-09-27] MEDS ORDERED: PROPOFOL 10 MG/ML (20ML) VIAL. IV ONE (11:39)
[2020-09-27 15:00] VITALS: BP 107/60
--- NOTE | 2020-09-27 15:46 | PDOC ---
[facility] [facility] PROGRESS NOTE Date of Service DOS: DATE: 09/27/20 TIME: 15:45 Chief Complaint Chief Complaint Right lower lobe necrotizing pneumonia with cavitary lesion, possible gram- negative organism, possible staph aureus, possible aspiration normocytic anemia due to chronic inflammation thrombocytosis suggestive of reactive to infection mild hyponatremia severe protein malnutrition incarcerated Admit to medicine for further management Pending bronchoscopy today and possible BAL Pulm consult ID consult IV Vanc/Zosyn continue IV fluids Pending BLood Cx Pending HIV Lovenox for DVT prophylaxis Reg Diet FULL code DPOA: Undesignated History of Present Illness History of Present Illness 09/27/2020 No acute events overnight. Afebrile. Patient taken down to bronchoscopy today. Continues to be on IV vancomycin and Zosyn. There appears to be digital clubbing on bilateral hands. 09/26/2020 No acute events overnight. Afebrile. T-max of 99.6. Continue IV vancomycin and Zosyn. Patient's chart, labs, images were reviewed and discussed with RN 09/25/20 No acute events overnight. Pending MRSA PCR. HIV -. Continue Vanc/Zosyn. > 50% time spent in patient chart, labs, and image review and discussion with RN and LEVON 25-year-old male with PMHx of IVDA 6 years ago, Hx of childhood asthma, and incarcerated 1 year ago [facility] Cough and shortness of breath for 2 weeks. Apparently, patient had a cough 2 months ago but did not do much about it at that time. With this presenation, patient was unable to sleep and had more production with riya brown malodorous sputum. He felt as if something was draining from his lungs when lying down on his Right side. Patient was is on antibiotics but reports no improvement in symptoms. Patient denies any fever, chest pain, dysuria, or bloody stools.. Vitals/I&O Vitals/I&O: Vital Signs Date Time Temp Pulse Resp B/P (MAP) Pulse Ox O2 Delivery O2 Flow Rate FiO2 09/27/20 15:00 98.8 115 18 107/60 (76) 92 Room Air 98.8 09/27/20 12:14 10 I & O 09/26/20 09/26/20 09/27/20 15:00 23:00 07:00 Intake Total 550 ml 725 ml 1100 ml Balance 550 ml 725 ml 1100 ml Physical Exam Physical Exam: GENERAL: Alert, oriented x 3 male lying in bed comfortably, in no acute distress. plant guard is at bedside. HEENT: Normocephalic, atraumatic. Anicteric. Oropharynx clear. No thrush. Dentition fair. NECK: Supple, no JVD, no lymphadenopathy. LUNGS: Decreased breath sounds at the right base. No wheezing. HEART: S1, S2, no murmurs. ABDOMEN: Soft, nontender, nondistended, no rebound or guarding. EXTREMITIES: No edema, no cyanosis. DERMATOLOGIC: Warm, dry. No generalized rash. Multiple tattoos. NEUROLOGIC: Alert and oriented x 3. Grossly nonfocal. PSYCHIATRIC: Cooperative, appropriate mood and affect. Lungs: Crackles Labs Labs: Laboratory Tests Test 09/26/20 19:30 SARS-CoV-2 RNA (BEATA) Negative (Negative) SARS-CoV-2 Antigen (Rapid) Negative (NEGATIVE) Assessment and Plan Assessmemt and Plan Problems Medical Problems: (1) Leukocytosis Status: Acute Comment Review of Relevant I have reviewed the following items agustin (where applicable) has been applied. Medications: Current Medications Medications (Trade) Dose Ordered Sig/Ayaka Route PRN Reason Start Time Stop Time Status Last Admin Dose Admin Morphine Sulfate (Morphine Sulfate) 2 mg PRN Q2HR PRN IV SEVERE PAIN 7-10 09/26/20 23:15 09/26/20 23:49 Guaifenesin (Robitussin Dm) 10 ml PRN Q6HRS PRN PO COUGH 09/26/20 23:15 09/26/20 23:45 Albuterol Sulfate (Ventolin Neb Soln) 2.5 mg PRN 1X PRN NEB SHORTNESS OF BREATH 09/27/20 08:15 09/28/20 08:14 09/27/20 11:23 Lidocaine HCl (Lidocaine 2% Viscous) 100 ml PRN 1X PRN MM FOR PROCEDURE 09/27/20 08:15 09/28/20 08:14 09/27/20 11:23 Lidocaine HCl (Lidocaine 1% 20ml Vial) 20 ml PRN 1X PRN INJ SEE COMMENTS 09/27/20 08:15 09/28/20 08:14 09/27/20 11:24 Lidocaine HCl (Lidocaine 4% Topical) 50 ml PRN 1X PRN MM SEE COMMENTS 09/27/20 08:15 09/28/20 08:14 09/27/20 11:23 Ringer's Solution 1,000 ml @ 75 mls/hr 1X ONCE IV 09/27/20 09:45 09/27/20 23:04 09/27/20 11:39 Justifications for Admission Other Justification Pneumonia JACK ARELLANO MD Sep 27, 2020 15:46
--- NOTE | 2020-09-27 17:17 | PDOC4 ---
PROCEDURE Procedure Procedure; bronchoscopy with BAL Indication: patient presented with right sided necrotic pneumonia. Undergoing diagnostic bronchoscopy. Risk benefits and alternatives reviewed with patient he consented Sedation, see anesthesia's notes Description Timeout was performed prior to sedation. O2 saturation and vital signs were maintained within normal limits throughout the procedure. The bronchoscope was passed through a orally placed bite-block. Vocal cords were identified. There was bilateral movement with no dysfunction. Bronchoscope was passed through the vocal cords into the proximal trachea which was normal the left segments and subsegments were visualized there was no endobronchial lesions. Bronchoscope was advanced through the right mainstem bronchus. There was mucosal abnormality with cobblestoning formation. Scope was wedged into the right lower lobe and a bronchoalveolar lavage was performed the return was serosanguineous. Finding 1. Normal vocal cords 2. Normal left segments and subsegment 3. Abnormality of the right lower lobe mucosa, with some cobblestoning. Plan Will await BAL results ANICETO CONKLIN MD Sep 27, 2020 17:17
[2020-09-27] MEDS: IV NORMAL SALINE 1000ML BAG 1,000 ML IV SCH (17:18)
[2020-09-27 19:35] VITALS: BP 117/66
[2020-09-27] MEDS: MORPHINE SULFATE 2 MG/ML VIAL. IV PRN (19:36)
[2020-09-27 23:12] VITALS: BP 110/66
[2020-09-28 03:10] VITALS: BP 117/69
[2020-09-28] MEDS: IV NORMAL SALINE 1000ML BAG 1,000 ML IV SCH ×3 (03:57→23:40)
[2020-09-28] MEDS: PIPERACILLIN/TAZOBACTAM 3.375 GM in IV NORMAL SALINE 50ML 50 ML IV SCH ×4 (06:18→23:30)
[2020-09-28 07:00] VITALS: BP 103/67
[2020-09-28] MEDS: LACTOBACILLUS RHAMNOSUS GG 1 CAPSULE. PO SCH ×2 (08:44→20:16)
[2020-09-28] MEDS: LINEZOLID 600 MG TABLET PO SCH ×2 (08:44→20:16)
[2020-09-28] MEDS: ENOXAPARIN 40 MG/0.4 ML SYRINGE. SQ SCH (08:45)
[2020-09-28] MEDS: guaiFENesin DM 200MG/20MG 10 ML SYRUP PO PRN (08:57)
[2020-09-28] MEDS: MORPHINE SULFATE 2 MG/ML VIAL. IV PRN ×3 (09:01→23:29)
--- NOTE | 2020-09-28 09:38 | PDOC ---
PULMONARY PROGRESS NOTES DATE: 09/28/20 TIME: 09:38 Subjective Patient cough increased after bronchoscopy, now better Mucus production is diminished Vitals Vital Signs Date Time Temp Pulse Resp B/P (MAP) Pulse Ox O2 Delivery O2 Flow Rate FiO2 09/28/20 09:33 Room Air 09/28/20 07:00 98.3 92 18 103/67 (79) 91 98.3 09/27/20 12:14 10 ROS: No Nausea, No Chest Pain, No Abdominal Pain, No Increase Cough General: Alert Lungs: Crackles Cardiovascular: S1, S2 Abdomen: Soft Neuro Exam: Alert Extremities: No Edema Skin: Warm Labs Laboratory Tests Test 09/26/20 19:30 SARS-CoV-2 RNA (BEATA) Negative (Negative) SARS-CoV-2 Antigen (Rapid) Negative (NEGATIVE) Impression . IMPRESSION: 1. Abnormal CT revealing right-sided necrotizing pneumonia along with cavitary lesion. 2. Small right-sided effusion. 3. Leukocytosis. 4. History of drug use. 5. HIV testing negative 6. Nasal PCR for MRSA negative 7. Status post bronchoscopy 09/27 mucosal abnormality leading to the right lower lobe segments, with some cobblestoning, sanam/reddish white appearance (possible MRSA) Plan . Dated 09/28 status post bronchoscopy BAL results are pending Upon visualization, the cobblestone appearance to the airway could be related to MRSA Updated 09/27 Proceed with bronchoscopy, risk benefits and alternatives reviewed with patient he consented Case discussed with infectious disease service, Continue empiric antibiotics Updated 09/26 Patient not improving Leukocytosis persists Continue empiric antibiotics We will discuss with ID, the possibility of undergoing bronchoscopy I have informed the patient that he may require bronchoscopy, risk benefits and alternatives reviewed with patient. ANICETO CONKLIN MD Sep 28, 2020 09:38
[2020-09-28 10:27] LABS: ALBUMIN 1.6 g/dL (3.4-5.0); ALBUMIN/GLOBULIN RATIO 0.3 (1.0-1.7); CALCIUM 7.7 mg/dL (8.5-10.1); CREATININE 0.8 mg/dL (0.7-1.3); GFR 116.9; POTASSIUM 4.1 mmol/L (3.5-5.1); TOTAL BILIRUBIN 0.4 mg/dL (0.2-1.0); TOTAL PROTEIN 6.6 g/dL (6.4-8.2)
[2020-09-28 10:28] LABS: BASO # 0.1 x10^3/uL (0.0-0.2); BASO % 0 % (0-3); EOS # 0.1 x10^3/uL (0.0-0.7); EOS % 1 % (0-3); HEMATOCRIT 33.6 % (39.0-53.0); HEMOGLOBIN 11.1 g/dL (13.0-17.5); LYMPH # 2.6 x10^3/uL (1.0-4.8); LYMPH % 15 % (24-48); MEAN CORPUSCULAR HEMOGLOBIN 29 pg (25-35); MEAN CORPUSCULAR HGB CONC 33 g/dL (31-37); MEAN CORPUSCULAR VOLUME 88 fL (79-100); MONO # 1.7 x10^3/uL (0.0-1.1); MONO % 10 % (0-9); NEUT # 12.7 x10^3/uL (1.8-7.7); NEUT % 74 % (31-73); PLATELET COUNT 538 x10^3/uL (140-400); RED BLOOD COUNT 3.82 x10^6/uL (4.30-5.70); RED CELL DISTRIBUTION WIDTH 15.1 % (11.5-14.5); WHITE BLOOD COUNT 17.2 x10^3/uL (4.0-11.0)
--- NOTE | 2020-09-28 10:55 | PDOC ---
Infectious Disease Note Subjective: Subjective Patient underwent bronchoscopy yesterday post procedure had a lot of cough Continues to have purulent sputum production No fevers nausea, vomiting, headache or diarrhea Vital Signs: Vital Signs Vital Signs Date Time Temp Pulse Resp B/P (MAP) Pulse Ox O2 Delivery O2 Flow Rate FiO2 09/28/20 09:33 Room Air 09/28/20 07:00 98.3 92 18 103/67 (79) 91 98.3 09/27/20 12:14 10 Physical Exam: PHYSICAL EXAM GENERAL: Alert, oriented x 3 male lying in bed comfortably, in no acute distress. aerial gunner superintendent is at bedside. HEENT: Normocephalic, atraumatic. Anicteric. Oropharynx clear. No thrush. Dentition fair. NECK: Supple, no JVD, no lymphadenopathy. LUNGS: Decreased breath sounds at the right base. No wheezing. HEART: S1, S2, no murmurs. ABDOMEN: Soft, nontender, nondistended, no rebound or guarding. EXTREMITIES: No edema, no cyanosis. DERMATOLOGIC: Warm, dry. No generalized rash. Multiple tattoos. NEUROLOGIC: Alert and oriented x 3. Grossly nonfocal. PSYCHIATRIC: Cooperative, appropriate mood and affect. Medications: Inpatient Meds: Medications reviewed. Labs: Lab Laboratory Tests Test 09/28/20 09:45 White Blood Count 17.2 x10^3/uL (4.0-11.0) Red Blood Count 3.82 x10^6/uL (4.30-5.70) Hemoglobin 11.1 g/dL (13.0-17.5) Hematocrit 33.6 % (39.0-53.0) Mean Corpuscular Volume 88 fL (79-100) Mean Corpuscular Hemoglobin 29 pg (25-35) Mean Corpuscular Hemoglobin Concent 33 g/dL (31-37) Red Cell Distribution Width 15.1 % (11.5-14.5) Platelet Count 538 x10^3/uL (140-400) Neutrophils (%) (Auto) 74 % (31-73) Lymphocytes (%) (Auto) 15 % (24-48) Monocytes (%) (Auto) 10 % (0-9) Eosinophils (%) (Auto) 1 % (0-3) Basophils (%) (Auto) 0 % (0-3) Neutrophils # (Auto) 12.7 x10^3/uL (1.8-7.7) Lymphocytes # (Auto) 2.6 x10^3/uL (1.0-4.8) Monocytes # (Auto) 1.7 x10^3/uL (0.0-1.1) Eosinophils # (Auto) 0.1 x10^3/uL (0.0-0.7) Basophils # (Auto) 0.1 x10^3/uL (0.0-0.2) Sodium Level 136 mmol/L (136-145) Potassium Level 4.1 mmol/L (3.5-5.1) Chloride Level 100 mmol/L (98-107) Carbon Dioxide Level 28 mmol/L (21-32) Anion Gap 8 (6-14) Blood Urea Nitrogen 9 mg/dL (8-26) Creatinine 0.8 mg/dL (0.7-1.3) Estimated GFR (Cockcroft-Gault) 116.9 BUN/Creatinine Ratio 11 (6-20) Glucose Level 129 mg/dL (70-99) Calcium Level 7.7 mg/dL (8.5-10.1) Total Bilirubin 0.4 mg/dL (0.2-1.0) Aspartate Amino Transf (AST/SGOT) 67 U/L (15-37) Alanine Aminotransferase (ALT/SGPT) 88 U/L (16-63) Alkaline Phosphatase 57 U/L (46-116) Total Protein 6.6 g/dL (6.4-8.2) Albumin 1.6 g/dL (3.4-5.0) Albumin/Globulin Ratio 0.3 (1.0-1.7) Objective: Assessment: Right lower lobe pneumonia with cavitary lesion,air fluid level likely lung abscess Sputum cultures normal respiratory shahida, Gram stain GNR and GPC Leucocytosis Anemia and thrombocytosis likely from infection Hyponatremia Incarcerated H/O smoking , marijhuana use in the past, h/o drug abuse long time back Wt loss Plan: Plan of Care Continue current antibiotic treatment Follow-up bronc cultures Blood cultures negative so far, HIV and COVID-19 negative Monitor labs and cultures Continue supportive care MAYURI ROBERTSON MD Sep 28, 2020 10:55
--- NOTE | 2020-09-28 10:55 | PDOC ---
[employer] PROGRESS NOTE Date of Service DOS: DATE: 09/28/20 TIME: 10:54 Chief Complaint Chief Complaint Right lower lobe necrotizing pneumonia with cavitary lesion, possible gram- negative organism, possible staph aureus, possible aspiration normocytic anemia due to chronic inflammation thrombocytosis suggestive of reactive to infection mild hyponatremia severe protein malnutrition incarcerated Admit to medicine for further management Pending bronchoscopy today and possible BAL Pulm consult ID consult IV Vanc/Zosyn continue IV fluids Pending BLood Cx Pending HIV Lovenox for DVT prophylaxis Reg Diet FULL code DPOA: Undesignated History of Present Illness History of Present Illness 09/28/2020 No acute events overnight. Status post bronchoscopy with BAL sent. Follow-up with cultures. Continue empiric IV antibiotics. No acute desaturations or dyspnea reported. Saturating 91 % on room air. Patient's chart, labs, images were reviewed and discussed with RN 09/27/2020 No acute events overnight. Afebrile. Patient taken down to bronchoscopy today. Continues to be on IV vancomycin and Zosyn. There appears to be digital clubbing on bilateral hands. 09/26/2020 No acute events overnight. Afebrile. T-max of 99.6. Continue IV vancomycin and Zosyn. Patient's chart, labs, images were reviewed and discussed with RN 09/25/20 No acute events overnight. Pending MRSA PCR. HIV -. Continue Vanc/Zosyn. > 50% time spent in patient chart, labs, and image review and discussion with RN and LEVON 25-year-old male with PMHx of IVDA 6 years ago, Hx of childhood asthma, and incarcerated 1 year ago comes to the ED from shelter due to Cough and shortness of breath for 2 weeks. Apparently, patient had a cough 2 months ago but did not do much about it at that time. With this presenation, patient was unable to sleep and had more production with riya brown malodorous sputum. He felt as if something was draining from his lungs when lying down on his Right side. Patient was is on antibiotics but reports no improvement in symptoms. Patient denies any fever, chest pain, dysuria, or bloody stools.. Vitals/I&O Vitals/I&O: Vital Signs Date Time Temp Pulse Resp B/P (MAP) Pulse Ox O2 Delivery O2 Flow Rate FiO2 09/28/20 09:33 Room Air 09/28/20 07:00 98.3 92 18 103/67 (79) 91 98.3 09/27/20 12:14 10 I & O 09/27/20 09/27/20 09/28/20 15:00 23:00 07:00 Intake Total 400 ml 320 ml 1410 ml Balance 400 ml 320 ml 1410 ml Physical Exam Physical Exam: GENERAL: Alert, oriented x 3 male lying in bed comfortably, in no acute distress. 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 HEENT: Normocephalic, atraumatic. Anicteric. Oropharynx clear. No thrush. Dentition fair. NECK: Supple, no JVD, no lymphadenopathy. LUNGS: Decreased breath sounds at the right base. No wheezing. HEART: S1, S2, no murmurs. ABDOMEN: Soft, nontender, nondistended, no rebound or guarding. EXTREMITIES: No edema, no cyanosis. DERMATOLOGIC: Warm, dry. No generalized rash. Multiple tattoos. NEUROLOGIC: Alert and oriented x 3. Grossly nonfocal. PSYCHIATRIC: Cooperative, appropriate mood and affect. Lungs: Crackles Labs Labs: Laboratory Tests Test 09/28/20 09:45 White Blood Count 17.2 x10^3/uL (4.0-11.0) Red Blood Count 3.82 x10^6/uL (4.30-5.70) Hemoglobin 11.1 g/dL (13.0-17.5) Hematocrit 33.6 % (39.0-53.0) Mean Corpuscular Volume 88 fL (79-100) Mean Corpuscular Hemoglobin 29 pg (25-35) Mean Corpuscular Hemoglobin Concent 33 g/dL (31-37) Red Cell Distribution Width 15.1 % (11.5-14.5) Platelet Count 538 x10^3/uL (140-400) Neutrophils (%) (Auto) 74 % (31-73) Lymphocytes (%) (Auto) 15 % (24-48) Monocytes (%) (Auto) 10 % (0-9) Eosinophils (%) (Auto) 1 % (0-3) Basophils (%) (Auto) 0 % (0-3) Neutrophils # (Auto) 12.7 x10^3/uL (1.8-7.7) Lymphocytes # (Auto) 2.6 x10^3/uL (1.0-4.8) Monocytes # (Auto) 1.7 x10^3/uL (0.0-1.1) Eosinophils # (Auto) 0.1 x10^3/uL (0.0-0.7) Basophils # (Auto) 0.1 x10^3/uL (0.0-0.2) Sodium Level 136 mmol/L (136-145) Potassium Level 4.1 mmol/L (3.5-5.1) Chloride Level 100 mmol/L (98-107) Carbon Dioxide Level 28 mmol/L (21-32) Anion Gap 8 (6-14) Blood Urea Nitrogen 9 mg/dL (8-26) Creatinine 0.8 mg/dL (0.7-1.3) Estimated GFR (Cockcroft-Gault) 116.9 BUN/Creatinine Ratio 11 (6-20) Glucose Level 129 mg/dL (70-99) Calcium Level 7.7 mg/dL (8.5-10.1) Total Bilirubin 0.4 mg/dL (0.2-1.0) Aspartate Amino Transf (AST/SGOT) 67 U/L (15-37) Alanine Aminotransferase (ALT/SGPT) 88 U/L (16-63) Alkaline Phosphatase 57 U/L (46-116) Total Protein 6.6 g/dL (6.4-8.2) Albumin 1.6 g/dL (3.4-5.0) Albumin/Globulin Ratio 0.3 (1.0-1.7) Assessment and Plan Assessmemt and Plan Problems Medical Problems: (1) Leukocytosis Status: Acute Comment Review of Relevant I have reviewed the following items agustin (where applicable) has been applied. Justifications for Admission Other Justification Pneumonia JACK ARELLANO MD Sep 28, 2020 10:55
[2020-09-28 11:00] VITALS: BP 114/63
[2020-09-28] MEDS: ACETAMINOPHEN 325 MG TABLET. PO PRN ×2 (13:50→20:16)
[2020-09-28 15:00] VITALS: BP 118/67
[2020-09-28 19:00] VITALS: BP 124/72
[2020-09-28 23:00] VITALS: BP 117/63
[2020-09-29 03:00] VITALS: BP 121/68
[2020-09-29] MEDS: MORPHINE SULFATE 2 MG/ML VIAL. IV PRN ×5 (03:24→21:35)
[2020-09-29] MEDS: ACETAMINOPHEN 325 MG TABLET. PO PRN ×2 (03:25→23:08)
[2020-09-29] MEDS: PIPERACILLIN/TAZOBACTAM 3.375 GM in IV NORMAL SALINE 50ML 50 ML IV SCH ×4 (05:06→23:08)
[2020-09-29 07:49] VITALS: BP 120/72
[2020-09-29] MEDS: LINEZOLID 600 MG TABLET PO SCH ×2 (08:42→21:29)
[2020-09-29] MEDS: LACTOBACILLUS RHAMNOSUS GG 1 CAPSULE. PO SCH ×2 (08:42→21:29)
[2020-09-29] MEDS: ENOXAPARIN 40 MG/0.4 ML SYRINGE. SQ SCH (08:42)
[2020-09-29] MEDS: IV NORMAL SALINE 1000ML BAG 1,000 ML IV SCH ×2 (10:02→21:30)
--- NOTE | 2020-09-29 11:31 | PDOC ---
Infectious Disease Note Subjective Subjective c/o right sided chest pain with deep breaths Loose stools Fever Tmax 101.7 Deneis SOA/N/V/rash ROS ROS as mentioned above Vital Sign Vital Signs Vital Signs Date Time Temp Pulse Resp B/P (MAP) Pulse Ox O2 Delivery O2 Flow Rate FiO2 09/29/20 10:41 Room Air 09/29/20 10:01 2.0 09/29/20 07:49 98.7 93 18 120/72 (88) 97 98.7 Physical Exam PHYSICAL EXAM GENERAL: In bed, alert no distress HEENT: Normocephalic, atraumatic. Anicteric. Oropharynx clear. No thrush. Dentition fair. NECK: Supple, no JVD, no lymphadenopathy. LUNGS: Decreased breath sounds at the right base. No wheezing.2L O2 HEART: S1, S2, no murmurs. ABDOMEN: Soft, nontender, nondistended, no rebound or guarding. EXTREMITIES: No edema, no cyanosis. DERMATOLOGIC: Warm, dry. No generalized rash. Multiple tattoos. NEUROLOGIC: Alert and oriented x 3. Grossly nonfocal. PSYCHIATRIC: Cooperative, appropriate mood and affect. PIV Labs Micro 09/24. BLOOD CULTURE Preliminary NO GROWTH AFTER 4 DAYS 09/25. Sputum GRAM STAIN EVALUATION Final Final GRAM NEGATIVE RODS:MANY GRAM POSITIVE COCCI:MODERATE SQUAMOUS EPI CELL:FEW PMN (WBCs):MANY YEAST:RARE RESPIRATORY CULTURE Final Final MODERATE Mixed upper respiratory shahida on 09/27/20 at 0930 09/27. Bronch GRAM STAIN EVALUATION Final Final NO ORGANISMS SEEN. RBC:MANY SQUAMOUS EPI CELL:NONE SEEN PMN (WBCs):MANY RESPIRATORY CULTURE Final Final No Growth on 09/28/20 at 1046 No Growth on 09/29/20 at 1048 Objective Assessment Fever Right lower lobe pneumonia with cavitary lesion, air fluid level likely lung abscess s/p bronch 09/27 cx neg Sputum cultures normal respiratory shahida, Gram stain GNR and GPC Leucocytosis Anemia and thrombocytosis likely from infection Hyponatremia Incarcerated H/O smoking , marijhuana use in the past, h/o drug abuse long time back Wt loss Plan Plan of Care Zyvox and Zosyn bronc cultures neg Blood cultures negative so far, HIV and COVID-19 negative Monitor labs/temp Continue supportive care Still a lot of purulent sputum. Will need repeat CT scan Cont abx ? if pathology done on sputum on probiotics Attending Co-Sign Attending Co-Sign The patient was seen and interviewed as well as examined at the bedside. The chart was reviewed. The case was discussed. Agree with the plan of care. HANH POLLARD APRN Sep 29, 2020 11:31 SARA REYES MD Sep 29, 2020 16:44
[2020-09-29] MEDS: guaiFENesin DM 200MG/20MG 10 ML SYRUP PO PRN (11:45)
--- NOTE | 2020-09-29 11:46 | PDOC ---
[employer] PROGRESS NOTE Date of Service DOS: DATE: 09/29/20 TIME: 11:44 Chief Complaint Chief Complaint Right lower lobe necrotizing pneumonia with cavitary lesion, possible gram- negative organism, possible staph aureus, possible aspiration normocytic anemia due to chronic inflammation thrombocytosis suggestive of reactive to infection mild hyponatremia severe protein malnutrition incarcerated Admit to medicine for further management Pending bronchoscopy today and possible BAL Pulm consult ID consult IV Vanc/Zosyn continue IV fluids Pending BLood Cx Pending HIV Lovenox for DVT prophylaxis Reg Diet FULL code DPOA: Undesignated History of Present Illness History of Present Illness 09/29/2020 No acute events overnight. Continue with empiric IV antibiotics. Saturating 97% on room air. No concerns from nursing. Patient is feeling well. Pending BAL cultures. Patient's chart, labs, images were reviewed and discussed with RN 09/28/2020 No acute events overnight. Status post bronchoscopy with BAL sent. Follow-up with cultures. Continue empiric IV antibiotics. No acute desaturations or dyspnea reported. Saturating 91 % on room air. Patient's chart, labs, images were reviewed and discussed with RN 09/27/2020 No acute events overnight. Afebrile. Patient taken down to bronchoscopy today. Continues to be on IV vancomycin and Zosyn. There appears to be digital clubbing on bilateral hands. 09/26/2020 No acute events overnight. Afebrile. T-max of 99.6. Continue IV vancomycin and Zosyn. Patient's chart, labs, images were reviewed and discussed with RN 09/25/20 No acute events overnight. Pending MRSA PCR. HIV -. Continue Vanc/Zosyn. > 50% time spent in patient chart, labs, and image review and discussion with RN and LEVON 25-year-old male with PMHx of IVDA 6 years ago, Hx of childhood asthma, and incarcerated 1 year ago [facility] due to Cough and shortness of breath for 2 weeks. Apparently, patient had a cough 2 months ago but did not do much about it at that time. With this presenation, patient was unable to sleep and had more production with riya brown malodorous sputum. He felt as if something was draining from his lungs when lying down on his Right side. Patient was is on antibiotics but reports no improvement in symptoms. Patient denies any fever, chest pain, dysuria, or bloody stools.. Vitals/I&O Vitals/I&O: Vital Signs Date Time Temp Pulse Resp B/P (MAP) Pulse Ox O2 Delivery O2 Flow Rate FiO2 09/29/20 10:41 Room Air 09/29/20 10:01 2.0 09/29/20 07:49 98.7 93 18 120/72 (88) 97 98.7 I & O 09/28/20 09/28/20 09/29/20 15:00 23:00 07:00 Intake Total 720 ml 720 ml 1000 ml Balance 720 ml 720 ml 1000 ml Physical Exam Physical Exam: GENERAL: In bed, alert no distress HEENT: Normocephalic, atraumatic. Anicteric. Oropharynx clear. No thrush. Dentition fair. NECK: Supple, no JVD, no lymphadenopathy. LUNGS: Decreased breath sounds at the right base. No wheezing.2L O2 HEART: S1, S2, no murmurs. ABDOMEN: Soft, nontender, nondistended, no rebound or guarding. EXTREMITIES: No edema, no cyanosis. DERMATOLOGIC: Warm, dry. No generalized rash. Multiple tattoos. NEUROLOGIC: Alert and oriented x 3. Grossly nonfocal. PSYCHIATRIC: Cooperative, appropriate mood and affect. PIV Lungs: Crackles Assessment and Plan Assessmemt and Plan Problems Medical Problems: (1) Leukocytosis Status: Acute Comment Review of Relevant I have reviewed the following items agustin (where applicable) has been applied. Justifications for Admission Other Justification Pneumonia JACK ARELLANO MD Sep 29, 2020 11:46
[2020-09-29 11:47] VITALS: BP 104/63
--- NOTE | 2020-09-29 11:50 | PDOC ---
PULMONARY PROGRESS NOTES DATE: 09/29/20 TIME: 11:48 Subjective denies sob has cough sputum Vitals Vital Signs Date Time Temp Pulse Resp B/P (MAP) Pulse Ox O2 Delivery O2 Flow Rate FiO2 09/29/20 11:47 98.3 97 18 104/63 (77) 96 Room Air 98.3 09/29/20 10:01 2.0 ROS: No Nausea, No Chest Pain, No Abdominal Pain, No Increase Cough General: Alert Lungs: Crackles Cardiovascular: S1, S2 Abdomen: Soft Neuro Exam: Alert Extremities: No Edema Skin: Warm Labs Laboratory Tests Test 09/27/20 12:12 09/28/20 09:45 Legionella species (PCR) Not detected (Not Detected) Legionella pneumophila DNA (PCR) Not detected (Not Detected) White Blood Count 17.2 x10^3/uL (4.0-11.0) Red Blood Count 3.82 x10^6/uL (4.30-5.70) Hemoglobin 11.1 g/dL (13.0-17.5) Hematocrit 33.6 % (39.0-53.0) Mean Corpuscular Volume 88 fL (79-100) Mean Corpuscular Hemoglobin 29 pg (25-35) Mean Corpuscular Hemoglobin Concent 33 g/dL (31-37) Red Cell Distribution Width 15.1 % (11.5-14.5) Platelet Count 538 x10^3/uL (140-400) Neutrophils (%) (Auto) 74 % (31-73) Lymphocytes (%) (Auto) 15 % (24-48) Monocytes (%) (Auto) 10 % (0-9) Eosinophils (%) (Auto) 1 % (0-3) Basophils (%) (Auto) 0 % (0-3) Neutrophils # (Auto) 12.7 x10^3/uL (1.8-7.7) Lymphocytes # (Auto) 2.6 x10^3/uL (1.0-4.8) Monocytes # (Auto) 1.7 x10^3/uL (0.0-1.1) Eosinophils # (Auto) 0.1 x10^3/uL (0.0-0.7) Basophils # (Auto) 0.1 x10^3/uL (0.0-0.2) Sodium Level 136 mmol/L (136-145) Potassium Level 4.1 mmol/L (3.5-5.1) Chloride Level 100 mmol/L (98-107) Carbon Dioxide Level 28 mmol/L (21-32) Anion Gap 8 (6-14) Blood Urea Nitrogen 9 mg/dL (8-26) Creatinine 0.8 mg/dL (0.7-1.3) Estimated GFR (Cockcroft-Gault) 116.9 BUN/Creatinine Ratio 11 (6-20) Glucose Level 129 mg/dL (70-99) Calcium Level 7.7 mg/dL (8.5-10.1) Total Bilirubin 0.4 mg/dL (0.2-1.0) Aspartate Amino Transf (AST/SGOT) 67 U/L (15-37) Alanine Aminotransferase (ALT/SGPT) 88 U/L (16-63) Alkaline Phosphatase 57 U/L (46-116) Total Protein 6.6 g/dL (6.4-8.2) Albumin 1.6 g/dL (3.4-5.0) Albumin/Globulin Ratio 0.3 (1.0-1.7) Impression . IMPRESSION: 1. Abnormal CT revealing right-sided necrotizing pneumonia along with cavitary lesion. 2. Small right-sided effusion. 3. Leukocytosis. 4. History of drug use. 5. HIV testing negative 6. Nasal PCR for MRSA negative 7. Status post bronchoscopy 09/27 mucosal abnormality leading to the right lower lobe segments, with some cobblestoning, sanam/reddish white appearance (possible MRSA) Plan . Dated 09/28 status post bronchoscopy bal cx neg Upon visualization, the cobblestone appearance to the airway could be related to MRSA abx per id add BD Updated 09/27 Proceed with bronchoscopy, risk benefits and alternatives reviewed with patient he consented Case discussed with infectious disease service, Continue empiric antibiotics Updated 09/26 Patient not improving Leukocytosis persists Continue empiric antibiotics We will discuss with ID, the possibility of undergoing bronchoscopy I have informed the patient that he may require bronchoscopy, risk benefits and alternatives reviewed with patient. YONATHAN HOLDEN MD Sep 29, 2020 11:50
[2020-09-29] MEDS: IPRATRPIUM/ALBUTEROL 0.5/2.5MG 3 ML NEBU. NEB SCH ×3 (12:00→18:25)
[2020-09-29 15:29] VITALS: BP 112/60
[2020-09-29 19:31] VITALS: BP 109/61
[2020-09-29 23:16] VITALS: BP 129/71
[2020-09-30 03:00] VITALS: BP 111/66
[2020-09-30] MEDS: PIPERACILLIN/TAZOBACTAM 3.375 GM in IV NORMAL SALINE 50ML 50 ML IV SCH ×4 (06:02→23:37)
[2020-09-30 07:00] VITALS: BP 112/53
[2020-09-30] MEDS: IPRATRPIUM/ALBUTEROL 0.5/2.5MG 3 ML NEBU. NEB SCH ×4 (07:19→20:03)
--- NOTE | 2020-09-30 07:36 | PDOC ---
PULMONARY PROGRESS NOTES DATE: 09/30/20 TIME: 07:35 Subjective denies sob cough sputum much improved w duoneb Vitals Vital Signs Date Time Temp Pulse Resp B/P (MAP) Pulse Ox O2 Delivery O2 Flow Rate FiO2 09/30/20 07:19 94 Nasal Cannula 2.0 09/30/20 03:00 98.7 90 20 111/66 (81) 98.7 ROS: No Nausea, No Chest Pain, No Abdominal Pain, No Increase Cough General: Alert Lungs: Crackles Cardiovascular: S1, S2 Abdomen: Soft Neuro Exam: Alert Extremities: No Edema Skin: Warm Labs Laboratory Tests Test 09/28/20 09:45 White Blood Count 17.2 x10^3/uL (4.0-11.0) Red Blood Count 3.82 x10^6/uL (4.30-5.70) Hemoglobin 11.1 g/dL (13.0-17.5) Hematocrit 33.6 % (39.0-53.0) Mean Corpuscular Volume 88 fL (79-100) Mean Corpuscular Hemoglobin 29 pg (25-35) Mean Corpuscular Hemoglobin Concent 33 g/dL (31-37) Red Cell Distribution Width 15.1 % (11.5-14.5) Platelet Count 538 x10^3/uL (140-400) Neutrophils (%) (Auto) 74 % (31-73) Lymphocytes (%) (Auto) 15 % (24-48) Monocytes (%) (Auto) 10 % (0-9) Eosinophils (%) (Auto) 1 % (0-3) Basophils (%) (Auto) 0 % (0-3) Neutrophils # (Auto) 12.7 x10^3/uL (1.8-7.7) Lymphocytes # (Auto) 2.6 x10^3/uL (1.0-4.8) Monocytes # (Auto) 1.7 x10^3/uL (0.0-1.1) Eosinophils # (Auto) 0.1 x10^3/uL (0.0-0.7) Basophils # (Auto) 0.1 x10^3/uL (0.0-0.2) Sodium Level 136 mmol/L (136-145) Potassium Level 4.1 mmol/L (3.5-5.1) Chloride Level 100 mmol/L (98-107) Carbon Dioxide Level 28 mmol/L (21-32) Anion Gap 8 (6-14) Blood Urea Nitrogen 9 mg/dL (8-26) Creatinine 0.8 mg/dL (0.7-1.3) Estimated GFR (Cockcroft-Gault) 116.9 BUN/Creatinine Ratio 11 (6-20) Glucose Level 129 mg/dL (70-99) Calcium Level 7.7 mg/dL (8.5-10.1) Total Bilirubin 0.4 mg/dL (0.2-1.0) Aspartate Amino Transf (AST/SGOT) 67 U/L (15-37) Alanine Aminotransferase (ALT/SGPT) 88 U/L (16-63) Alkaline Phosphatase 57 U/L (46-116) Total Protein 6.6 g/dL (6.4-8.2) Albumin 1.6 g/dL (3.4-5.0) Albumin/Globulin Ratio 0.3 (1.0-1.7) Impression . IMPRESSION: 1. Abnormal CT revealing right-sided necrotizing pneumonia along with cavitary lesion. 2. Small right-sided effusion. 3. Leukocytosis. 4. History of drug use. 5. HIV testing negative 6. Nasal PCR for MRSA negative 7. Status post bronchoscopy 09/27 mucosal abnormality leading to the right lower lobe segments, with some cobblestoning, sanam/reddish white appearance (possible MRSA) Plan . Dated 09/30 status post bronchoscopy bal cx neg Upon visualization, the cobblestone appearance to the airway could be related to MRSA abx per id cont BD helped cough discussed w pt Updated 09/27 Proceed with bronchoscopy, risk benefits and alternatives reviewed with patient he consented Case discussed with infectious disease service, Continue empiric antibiotics Updated 09/26 Patient not improving Leukocytosis persists Continue empiric antibiotics We will discuss with ID, the possibility of undergoing bronchoscopy I have informed the patient that he may require bronchoscopy, risk benefits and alternatives reviewed with patient. YONATHAN HOLDEN MD Sep 30, 2020 07:36
[2020-09-30] MEDS: IV NORMAL SALINE 1000ML BAG 1,000 ML IV SCH ×2 (08:30→17:55)
[2020-09-30] MEDS: MORPHINE SULFATE 2 MG/ML VIAL. IV PRN (08:34)
[2020-09-30] MEDS: LACTOBACILLUS RHAMNOSUS GG 1 CAPSULE. PO SCH ×2 (08:35→20:34)
[2020-09-30] MEDS: ENOXAPARIN 40 MG/0.4 ML SYRINGE. SQ SCH (08:35)
[2020-09-30] MEDS: LINEZOLID 600 MG TABLET PO SCH ×2 (08:35→20:34)
[2020-09-30 11:03] VITALS: BP 109/67
[2020-09-30] MEDS: oxyCODONE/APAP 10/325 1 TAB TABLET PO PRN ×3 (11:48→23:37)
--- NOTE | 2020-09-30 12:09 | PDOC ---
[employer] PROGRESS NOTE Date of Service DOS: DATE: 09/30/20 TIME: 12:08 Chief Complaint Chief Complaint Right lower lobe necrotizing pneumonia with cavitary lesion, possible gram- negative organism, possible staph aureus, possible aspiration normocytic anemia due to chronic inflammation thrombocytosis suggestive of reactive to infection mild hyponatremia severe protein malnutrition incarcerated Admit to medicine for further management Pending bronchoscopy today and possible BAL Pulm consult ID consult IV Vanc/Zosyn continue IV fluids Pending BLood Cx Pending HIV Lovenox for DVT prophylaxis Reg Diet FULL code DPOA: Undesignated History of Present Illness History of Present Illness 09/30/2020 No acute events overnight. T-max of 101 overnight. Continues to have purulent sputum. However, overall patient feels better and breathes better after breathing treatments. Per ID would consider repeat CT chest. Continue empiric IV antibiotics. Pending bronchoscopy fungal cultures.> 50% time spent in patient chart, labs, and imaging review and in discussion with RN and LEVON 09/29/2020 No acute events overnight. Continue with empiric IV antibiotics. Saturating 97% on room air. No concerns from nursing. Patient is feeling well. Pending BAL cultures. Patient's chart, labs, images were reviewed and discussed with RN 09/28/2020 No acute events overnight. Status post bronchoscopy with BAL sent. Follow-up with cultures. Continue empiric IV antibiotics. No acute desaturations or dyspnea reported. Saturating 91 % on room air. Patient's chart, labs, images were reviewed and discussed with RN 09/27/2020 No acute events overnight. Afebrile. Patient taken down to bronchoscopy today. Continues to be on IV vancomycin and Zosyn. There appears to be digital clubbing on bilateral hands. 09/26/2020 No acute events overnight. Afebrile. T-max of 99.6. Continue IV vancomycin and Zosyn. Patient's chart, labs, images were reviewed and discussed with RN 09/25/20 No acute events overnight. Pending MRSA PCR. HIV -. Continue Vanc/Zosyn. > 50% time spent in patient chart, labs, and image review and discussion with RN and LEVON 25-year-old male with PMHx of IVDA 6 years ago, Hx of childhood asthma, and incarcerated 1 year ago comes to the ED from [facility] due to Cough and shortness of breath for 2 weeks. Apparently, patient had a cough 2 months ago but did not do much about it at that time. With this presenation, patient was unable to sleep and had more production with riya brown malodorous sputum. He felt as if something was draining from his lungs when lying down on his Right side. Patient was is on antibiotics but reports no improvement in symptoms. Patient denies any fever, chest pain, dysuria, or bloody stools.. Vitals/I&O Vitals/I&O: Vital Signs Date Time Temp Pulse Resp B/P (MAP) Pulse Ox O2 Delivery O2 Flow Rate FiO2 09/30/20 11:48 Nasal Cannula 2.0 09/30/20 11:03 98.8 95 18 109/67 (81) 95 98.8 I & O 09/29/20 09/29/20 09/30/20 15:00 23:00 07:00 Intake Total 250 ml 250 ml Balance 250 ml 250 ml Physical Exam Physical Exam: GENERAL: In bed, alert no distress HEENT: Normocephalic, atraumatic. Anicteric. Oropharynx clear. No thrush. Dentition fair. NECK: Supple, no JVD, no lymphadenopathy. LUNGS: Decreased breath sounds at the right base. No wheezing.2L O2 HEART: S1, S2, no murmurs. ABDOMEN: Soft, nontender, nondistended, no rebound or guarding. EXTREMITIES: No edema, no cyanosis. DERMATOLOGIC: Warm, dry. No generalized rash. Multiple tattoos. NEUROLOGIC: Alert and oriented x 3. Grossly nonfocal. PSYCHIATRIC: Cooperative, appropriate mood and affect. PIV Lungs: Crackles Assessment and Plan Assessmemt and Plan Problems Medical Problems: (1) Leukocytosis Status: Acute Comment Review of Relevant I have reviewed the following items agustin (where applicable) has been applied. Medications: Current Medications Medications (Trade) Dose Ordered Sig/Ayaka Route PRN Reason Start Time Stop Time Status Last Admin Dose Admin Oxycodone/ Acetaminophen (Percocet 10/325) 1 tab PRN Q6HRS PRN PO MOD-SEVERE PAIN 09/30/20 09:15 09/30/20 11:48 Justifications for Admission Other Justification Pneumonia JACK ARELLANO MD Sep 30, 2020 12:09
[2020-09-30 14:55] VITALS: BP 105/60
--- NOTE | 2020-09-30 16:24 | PDOC ---
Infectious Disease Note Subjective Subjective Fever 101.0 with sweats last night Tires easily with activity Right-sided chest congestion and pain No increase O2 needs. 2L ROS ROS as mentioned above otherwise negative Vital Sign Vital Signs Vital Signs Date Time Temp Pulse Resp B/P (MAP) Pulse Ox O2 Delivery O2 Flow Rate FiO2 09/30/20 15:24 Nasal Cannula 2.0 09/30/20 14:55 97.9 97 18 105/60 (75) 96 97.9 Physical Exam PHYSICAL EXAM GENERAL: In bed, alert no distress HEENT: Normocephalic, atraumatic. Anicteric. Oropharynx clear. No thrush. Dentition fair. NECK: Supple, no JVD, no lymphadenopathy. LUNGS: Decreased breath sounds at the right base. No wheezing. 2L O2 HEART: S1, S2, no murmurs. ABDOMEN: Soft, nontender, nondistended, no rebound or guarding. EXTREMITIES: No edema, no cyanosis. DERMATOLOGIC: Warm, dry. No generalized rash. Multiple tattoos. NEUROLOGIC: Alert and oriented x 3. Grossly nonfocal. PSYCHIATRIC: Cooperative, appropriate mood and affect. PIV Labs Micro 09/24. BLOOD CULTURE Preliminary NO GROWTH AFTER 5 DAYS 09/25. Sputum GRAM STAIN EVALUATION Final Final GRAM NEGATIVE RODS:MANY GRAM POSITIVE COCCI:MODERATE SQUAMOUS EPI CELL:FEW PMN (WBCs):MANY YEAST:RARE RESPIRATORY CULTURE Final Final MODERATE Mixed upper respiratory shahida on 09/27/20 at 0930 09/27. Bronch GRAM STAIN EVALUATION Final Final NO ORGANISMS SEEN. RBC:MANY SQUAMOUS EPI CELL:NONE SEEN PMN (WBCs):MANY RESPIRATORY CULTURE Final Final No Growth on 09/28/20 at 1046 No Growth on 09/29/20 at 1048 AFB CULTURE GRAM STAIN Final Negative FUNGAL CULTURE,OTHER PENDING Objective Assessment Fever Right lower lobe pneumonia with cavitary lesion, air fluid level likely lung abscess s/p bronch 09/27 cx neg. AFB stain neg Sputum cultures normal respiratory shahida, Gram stain GNR and GPC Leucocytosis Anemia and thrombocytosis likely from infection Hyponatremia Incarcerated H/O smoking , marijhuana use in the past, h/o drug abuse long time back Wt loss Plan Plan of Care Zyvox and Zosyn bron cultures neg Blood cultures negative, HIV and COVID-19 negative Monitor labs/temp Continue supportive care Still a lot of purulent sputum. Will need repeat CT scan Cont abx ? if pathology done on sputum on probiotics Still coughing a lot - no blood. Still a lot of sputum adn occ pain Originally from [place] area Labs in am Needs repeat CT chest Attending Co-Sign Attending Co-Sign The patient was seen and interviewed as well as examined at the bedside. The chart was reviewed. The case was discussed. Agree with the plan of care. HANH POLLARD APRN Sep 30, 2020 16:24 SARA REYES MD Sep 30, 2020 16:29
[2020-09-30] MEDS: guaiFENesin DM 200MG/20MG 10 ML SYRUP PO PRN (17:55)
[2020-09-30 19:35] VITALS: BP 106/60
[2020-09-30] MEDS: ACETAMINOPHEN 325 MG TABLET. PO PRN (20:34)
[2020-09-30 23:29] VITALS: BP 116/67
[2020-10-01] MEDS: IV NORMAL SALINE 1000ML BAG 1,000 ML IV SCH ×2 (02:24→12:30)
[2020-10-01 03:16] VITALS: BP 110/63
[2020-10-01] MEDS: PIPERACILLIN/TAZOBACTAM 3.375 GM in IV NORMAL SALINE 50ML 50 ML IV SCH ×3 (06:10→18:38)
[2020-10-01] MEDS: oxyCODONE/APAP 10/325 1 TAB TABLET PO PRN ×2 (06:10→11:59)
[2020-10-01 06:11] LABS: BASO # 0.1 x10^3/uL (0.0-0.2); BASO % 1 % (0-3); EOS # 0.2 x10^3/uL (0.0-0.7); EOS % 2 % (0-3); HEMOGLOBIN 9.3 g/dL (13.0-17.5); LYMPH % 19 % (24-48); MEAN CORPUSCULAR HEMOGLOBIN 29 pg (25-35); MEAN CORPUSCULAR HGB CONC 33 g/dL (31-37); MEAN CORPUSCULAR VOLUME 88 fL (79-100); MONO # 1.2 x10^3/uL (0.0-1.1); MONO % 11 % (0-9); NEUT # 7.1 x10^3/uL (1.8-7.7); NEUT % 67 % (31-73); PLATELET COUNT 493 x10^3/uL (140-400); RED BLOOD COUNT 3.16 x10^6/uL (4.30-5.70); RED CELL DISTRIBUTION WIDTH 15.3 % (11.5-14.5); WHITE BLOOD COUNT 10.5 x10^3/uL (4.0-11.0)
[2020-10-01 06:26] LABS: CREATININE 0.7 mg/dL (0.7-1.3); GFR 136.3; POTASSIUM 4.2 mmol/L (3.5-5.1)
[2020-10-01 07:00] VITALS: BP 119/67
[2020-10-01] MEDS: IPRATRPIUM/ALBUTEROL 0.5/2.5MG 3 ML NEBU. NEB SCH ×4 (07:31→20:16)
[2020-10-01] MEDS: ENOXAPARIN 40 MG/0.4 ML SYRINGE. SQ SCH (08:44)
[2020-10-01] MEDS: LINEZOLID 600 MG TABLET PO SCH (08:44)
[2020-10-01] MEDS: LACTOBACILLUS RHAMNOSUS GG 1 CAPSULE. PO SCH (08:44)
--- NOTE | 2020-10-01 09:58 | PDOC ---
Infectious Disease Note Subjective: Subjective Patient remains afebrile last 24 hours Right-sided chest congestion and pain Purulent sputum production No increase O2 needs. 2L Vital Signs: Vital Signs Vital Signs Date Time Temp Pulse Resp B/P (MAP) Pulse Ox O2 Delivery O2 Flow Rate FiO2 10/01/20 07:56 Nasal Cannula 2.0 10/01/20 07:31 91 10/01/20 07:00 98.3 85 18 119/67 (84) 98.3 Physical Exam: PHYSICAL EXAM GENERAL: In bed, alert no distress HEENT: Normocephalic, atraumatic. Anicteric. Oropharynx clear. No thrush. Dentition fair. NECK: Supple, no JVD, no lymphadenopathy. LUNGS: Decreased breath sounds at the right base. No wheezing. 2L O2 HEART: S1, S2, no murmurs. ABDOMEN: Soft, nontender, nondistended, no rebound or guarding. EXTREMITIES: No edema, no cyanosis. DERMATOLOGIC: Warm, dry. No generalized rash. Multiple tattoos. NEUROLOGIC: Alert and oriented x 3. Grossly nonfocal. PSYCHIATRIC: Cooperative, appropriate mood and affect. PIV Medications: Inpatient Meds: Medications reviewed. Labs: Lab Laboratory Tests Test 10/01/20 05:20 White Blood Count 10.5 x10^3/uL (4.0-11.0) Red Blood Count 3.16 x10^6/uL (4.30-5.70) Hemoglobin 9.3 g/dL (13.0-17.5) Hematocrit 28.0 % (39.0-53.0) Mean Corpuscular Volume 88 fL (79-100) Mean Corpuscular Hemoglobin 29 pg (25-35) Mean Corpuscular Hemoglobin Concent 33 g/dL (31-37) Red Cell Distribution Width 15.3 % (11.5-14.5) Platelet Count 493 x10^3/uL (140-400) Neutrophils (%) (Auto) 67 % (31-73) Lymphocytes (%) (Auto) 19 % (24-48) Monocytes (%) (Auto) 11 % (0-9) Eosinophils (%) (Auto) 2 % (0-3) Basophils (%) (Auto) 1 % (0-3) Neutrophils # (Auto) 7.1 x10^3/uL (1.8-7.7) Lymphocytes # (Auto) 2.0 x10^3/uL (1.0-4.8) Monocytes # (Auto) 1.2 x10^3/uL (0.0-1.1) Eosinophils # (Auto) 0.2 x10^3/uL (0.0-0.7) Basophils # (Auto) 0.1 x10^3/uL (0.0-0.2) Sodium Level 136 mmol/L (136-145) Potassium Level 4.2 mmol/L (3.5-5.1) Chloride Level 102 mmol/L (98-107) Carbon Dioxide Level 27 mmol/L (21-32) Anion Gap 7 (6-14) Blood Urea Nitrogen 8 mg/dL (8-26) Creatinine 0.7 mg/dL (0.7-1.3) Estimated GFR (Cockcroft-Gault) 136.3 Glucose Level 91 mg/dL (70-99) Calcium Level 8.0 mg/dL (8.5-10.1) Objective: Assessment: Right lower lobe pneumonia with cavitary lesion,air fluid level likely lung abscess Sputum cultures normal respiratory shahida, Leucocytosis Anemia and thrombocytosis likely from infection Hyponatremia Incarcerated H/O smoking , marijhuana use in the past, h/o drug abuse long time back Wt loss Plan: Plan of Care Zyvox and Zosyn Start doxycycline bronc cultures neg Blood cultures negative, HIV and COVID-19 negative,Legionella neg Still a lot of purulent sputum. Will need repeat CT scan on probiotics Monitor labs/temp Continue supportive care MAYURI ROBERTSON MD Oct 01, 2020 09:58
--- NOTE | 2020-10-01 10:17 | PDOC ---
PULMONARY PROGRESS NOTES DATE: 10/01/20 TIME: 10:14 Subjective denies sob cough sputum c/o chest congestion Vitals Vital Signs Date Time Temp Pulse Resp B/P (MAP) Pulse Ox O2 Delivery O2 Flow Rate FiO2 10/01/20 07:56 Nasal Cannula 2.0 10/01/20 07:31 91 10/01/20 07:00 98.3 85 18 119/67 (84) 98.3 ROS: No Nausea, No Chest Pain, No Abdominal Pain, No Increase Cough General: Alert, No acute distress Lungs: Crackles Cardiovascular: S1, S2 Abdomen: Soft Neuro Exam: Alert Extremities: No Edema Skin: Warm Labs Laboratory Tests Test 10/01/20 05:20 White Blood Count 10.5 x10^3/uL (4.0-11.0) Red Blood Count 3.16 x10^6/uL (4.30-5.70) Hemoglobin 9.3 g/dL (13.0-17.5) Hematocrit 28.0 % (39.0-53.0) Mean Corpuscular Volume 88 fL (79-100) Mean Corpuscular Hemoglobin 29 pg (25-35) Mean Corpuscular Hemoglobin Concent 33 g/dL (31-37) Red Cell Distribution Width 15.3 % (11.5-14.5) Platelet Count 493 x10^3/uL (140-400) Neutrophils (%) (Auto) 67 % (31-73) Lymphocytes (%) (Auto) 19 % (24-48) Monocytes (%) (Auto) 11 % (0-9) Eosinophils (%) (Auto) 2 % (0-3) Basophils (%) (Auto) 1 % (0-3) Neutrophils # (Auto) 7.1 x10^3/uL (1.8-7.7) Lymphocytes # (Auto) 2.0 x10^3/uL (1.0-4.8) Monocytes # (Auto) 1.2 x10^3/uL (0.0-1.1) Eosinophils # (Auto) 0.2 x10^3/uL (0.0-0.7) Basophils # (Auto) 0.1 x10^3/uL (0.0-0.2) Sodium Level 136 mmol/L (136-145) Potassium Level 4.2 mmol/L (3.5-5.1) Chloride Level 102 mmol/L (98-107) Carbon Dioxide Level 27 mmol/L (21-32) Anion Gap 7 (6-14) Blood Urea Nitrogen 8 mg/dL (8-26) Creatinine 0.7 mg/dL (0.7-1.3) Estimated GFR (Cockcroft-Gault) 136.3 Glucose Level 91 mg/dL (70-99) Calcium Level 8.0 mg/dL (8.5-10.1) Laboratory Tests Test 10/01/20 05:20 White Blood Count 10.5 x10^3/uL (4.0-11.0) Red Blood Count 3.16 x10^6/uL (4.30-5.70) Hemoglobin 9.3 g/dL (13.0-17.5) Hematocrit 28.0 % (39.0-53.0) Mean Corpuscular Volume 88 fL (79-100) Mean Corpuscular Hemoglobin 29 pg (25-35) Mean Corpuscular Hemoglobin Concent 33 g/dL (31-37) Red Cell Distribution Width 15.3 % (11.5-14.5) Platelet Count 493 x10^3/uL (140-400) Neutrophils (%) (Auto) 67 % (31-73) Lymphocytes (%) (Auto) 19 % (24-48) Monocytes (%) (Auto) 11 % (0-9) Eosinophils (%) (Auto) 2 % (0-3) Basophils (%) (Auto) 1 % (0-3) Neutrophils # (Auto) 7.1 x10^3/uL (1.8-7.7) Lymphocytes # (Auto) 2.0 x10^3/uL (1.0-4.8) Monocytes # (Auto) 1.2 x10^3/uL (0.0-1.1) Eosinophils # (Auto) 0.2 x10^3/uL (0.0-0.7) Basophils # (Auto) 0.1 x10^3/uL (0.0-0.2) Sodium Level 136 mmol/L (136-145) Potassium Level 4.2 mmol/L (3.5-5.1) Chloride Level 102 mmol/L (98-107) Carbon Dioxide Level 27 mmol/L (21-32) Anion Gap 7 (6-14) Blood Urea Nitrogen 8 mg/dL (8-26) Creatinine 0.7 mg/dL (0.7-1.3) Estimated GFR (Cockcroft-Gault) 136.3 Glucose Level 91 mg/dL (70-99) Calcium Level 8.0 mg/dL (8.5-10.1) Impression . IMPRESSION: 1. Abnormal CT revealing right-sided necrotizing pneumonia along with cavitary lesion./ lung abscess 2. Small right-sided effusion. 3. Leukocytosis. 4. History of drug use. 5. HIV testing negative 6. Nasal PCR for MRSA negative 7. Status post bronchoscopy 09/27 mucosal abnormality leading to the right lower lobe segments, with some cobblestoning, sanam/reddish white appearance (possible MRSA) Plan . f/u cxr today to see response to abx status post bronchoscopy bal cx neg Bronch with, the cobblestone appearance to the airway abx per id wbc improving cont BD helped cough discussed w pt CARIDAD ALMONTE MD Oct 01, 2020 10:17
[2020-10-01 11:00] VITALS: BP 111/67
[2020-10-01] MEDS ORDERED: DOXYCYCLINE HYCLATE 100 MG TABLET PO SCH (11:00)
--- NOTE | 2020-10-01 13:22 | PDOC ---
[facility] PROGRESS NOTE Date of Service DOS: DATE: 10/01/20 TIME: 13:20 Chief Complaint Chief Complaint Right lower lobe necrotizing pneumonia with cavitary lesion, possible gram- negative organism, possible staph aureus, possible aspiration normocytic anemia due to chronic inflammation thrombocytosis suggestive of reactive to infection mild hyponatremia severe protein malnutrition incarcerated Admit to medicine for further management Pending bronchoscopy today and possible BAL Pulm consult ID consult IV Vanc/Zosyn continue IV fluids Pending BLood Cx Pending HIV Lovenox for DVT prophylaxis Reg Diet FULL code DPOA: Undesignated History of Present Illness History of Present Illness 10/01/2020 Afebrile. Still complains of cough with purulent sputum. Continue with doxycycline, Zosyn, and Zyvox, per ID. 09/30/2020 No acute events overnight. T-max of 101 overnight. Continues to have purulent sputum. However, overall patient feels better and breathes better after breathing treatments. Per ID would consider repeat CT chest. Continue empiric IV antibiotics. Pending bronchoscopy fungal cultures.> 50% time spent in patient chart, labs, and imaging review and in discussion with RN and LEVON 09/29/2020 No acute events overnight. Continue with empiric IV antibiotics. Saturating 97 % on room air. No concerns from nursing. Patient is feeling well. Pending BAL cultures. Patient's chart, labs, images were reviewed and discussed with RN 09/28/2020 No acute events overnight. Status post bronchoscopy with BAL sent. Follow-up with cultures. Continue empiric IV antibiotics. No acute desaturations or dyspnea reported. Saturating 91 % on room air. Patient's chart, labs, images were reviewed and discussed with RN 09/27/2020 No acute events overnight. Afebrile. Patient taken down to bronchoscopy today. Continues to be on IV vancomycin and Zosyn. There appears to be digital clubbing on bilateral hands. 09/26/2020 No acute events overnight. Afebrile. T-max of 99.6. Continue IV vancomycin and Zosyn. Patient's chart, labs, images were reviewed and discussed with RN 09/25/20 No acute events overnight. Pending MRSA PCR. HIV -. Continue Vanc/Zosyn. > 50% time spent in patient chart, labs, and image review and discussion with RN and LEVON 25-year-old male with PMHx of IVDA 6 years ago, Hx of childhood asthma, and incarcerated 1 year ago comes to the ED from long term due to Cough and shortness of breath for 2 weeks. Apparently, patient had a cough 2 months ago but did not do much about it at that time. With this presenation, patient was unable to sleep and had more production with riya brown malodorous sputum. He felt as if something was draining from his lungs when lying down on his Right side. Patient was is on antibiotics but reports no improvement in symptoms. Patient denies any fever, chest pain, dysuria, or bloody stools.. Vitals/I&O Vitals/I&O: Vital Signs Date Time Temp Pulse Resp B/P (MAP) Pulse Ox O2 Delivery O2 Flow Rate FiO2 10/01/20 11:59 Nasal Cannula 2.0 10/01/20 11:44 95 10/01/20 11:00 98.7 88 18 111/67 (82) 98.7 I & O 09/30/20 09/30/20 10/01/20 15:00 23:00 07:00 Intake Total 540 ml Output Total 600 ml Balance -60 ml Physical Exam Physical Exam: GENERAL: In bed, alert no distress HEENT: Normocephalic, atraumatic. Anicteric. Oropharynx clear. No thrush. Dentition fair. NECK: Supple, no JVD, no lymphadenopathy. LUNGS: Decreased breath sounds at the right base. No wheezing. 2L O2 HEART: S1, S2, no murmurs. ABDOMEN: Soft, nontender, nondistended, no rebound or guarding. EXTREMITIES: No edema, no cyanosis. DERMATOLOGIC: Warm, dry. No generalized rash. Multiple tattoos. NEUROLOGIC: Alert and oriented x 3. Grossly nonfocal. PSYCHIATRIC: Cooperative, appropriate mood and affect. PIV Lungs: Crackles Labs Labs: Laboratory Tests Test 10/01/20 05:20 White Blood Count 10.5 x10^3/uL (4.0-11.0) Red Blood Count 3.16 x10^6/uL (4.30-5.70) Hemoglobin 9.3 g/dL (13.0-17.5) Hematocrit 28.0 % (39.0-53.0) Mean Corpuscular Volume 88 fL (79-100) Mean Corpuscular Hemoglobin 29 pg (25-35) Mean Corpuscular Hemoglobin Concent 33 g/dL (31-37) Red Cell Distribution Width 15.3 % (11.5-14.5) Platelet Count 493 x10^3/uL (140-400) Neutrophils (%) (Auto) 67 % (31-73) Lymphocytes (%) (Auto) 19 % (24-48) Monocytes (%) (Auto) 11 % (0-9) Eosinophils (%) (Auto) 2 % (0-3) Basophils (%) (Auto) 1 % (0-3) Neutrophils # (Auto) 7.1 x10^3/uL (1.8-7.7) Lymphocytes # (Auto) 2.0 x10^3/uL (1.0-4.8) Monocytes # (Auto) 1.2 x10^3/uL (0.0-1.1) Eosinophils # (Auto) 0.2 x10^3/uL (0.0-0.7) Basophils # (Auto) 0.1 x10^3/uL (0.0-0.2) Sodium Level 136 mmol/L (136-145) Potassium Level 4.2 mmol/L (3.5-5.1) Chloride Level 102 mmol/L (98-107) Carbon Dioxide Level 27 mmol/L (21-32) Anion Gap 7 (6-14) Blood Urea Nitrogen 8 mg/dL (8-26) Creatinine 0.7 mg/dL (0.7-1.3) Estimated GFR (Cockcroft-Gault) 136.3 Glucose Level 91 mg/dL (70-99) Calcium Level 8.0 mg/dL (8.5-10.1) Assessment and Plan Assessmemt and Plan Problems Medical Problems: (1) Leukocytosis Status: Acute Comment Review of Relevant I have reviewed the following items agustin (where applicable) has been applied. Medications: Current Medications Medications (Trade) Dose Ordered Sig/Ayaka Route PRN Reason Start Time Stop Time Status Last Admin Dose Admin Doxycycline Hyclate (Vibra-Tab) 100 mg BID PO 10/01/20 11:00 10/01/20 11:56 Justifications for Admission Other Justification Pneumonia FARIHA VELAZQUEZ MD Oct 01, 2020 13:22
[2020-10-01 15:00] VITALS: BP 108/68
--- NOTE | 2020-10-01 16:11 | PATHOLOGY ---
Note [facility] Accession Number: [id number] TESTS RESULT FLAG UNITS REF RANGE LAB Clinician Provided Cytology Information No. of containers..01 Other (Miscellaneous) Source: BAL RLL DIAGNOSIS: BAL RLL NEGATIVE FOR MALIGNANT CELLS. NORMAL BRONCHIAL CELLS AND MACROPHAGES ARE PRESENT. PULMONARY MACROPHAGES (DUST CELLS) ARE PRESENT. SILVER METHENAMINE STAINED SMEARS ARE NEGATIVE FOR PNEUMOCYSTIS JIROVECI. NO FUNGAL ORGANISMS ARE PRESENT. Signed out by: Dioni Crouch MD, Pathologist NPI- [id number] Performed by: Sindhu Sutherland, Boy[employer]S Adviser ([facility]) Gross description: 13ML, CLOUDY ORNG RED, 1 TP 1 GMS /LCS 09/28/2020 1500 Local FLAG LEGEND: L-Low Normal,H-High Normal,LL-Alert Low,HH-Alert High <-Panic Low,>-Panic High,A-Abnormal,AA-Critical Abnormal Performed at: [address] [place] [address] Teofilo Marcial MD, [address] [address] Dioni Crouch MD, Specimen Comment: Report sent to Specimen Comment: A duplicate report has been generated due to demographic updates. Performed at: [address] [place] [address] [address], [place], [place] [id number] MD Teofilo Marcial MD Phone: [phone]
--- NOTE | 2020-10-01 16:38 | RAD ---
EXAM: Chest, single view. HISTORY: Pneumonia. COMPARISON: 09/24/2020 FINDINGS: A frontal view of the chest obtained. There is lucency within the superior right thorax, th e appearance of which favors a large hydropneumothorax. The possibility of progression of a cavitary lesion is not completely excluded given findings on the recent CT. There is a suspected underlying pa rtial collapse and consolidation of the right lung. The left lung is clear. The heart is normal in si ze. IMPRESSION: Suspected large right hydropneumothorax or significant progression of cavitary lesion wi thin the right upper thorax, and associated partial collapse and consolidation of the right lung. Thi s can be better assessed with a CT. Findings were discussed with Di, the nurse caring for the patient, at 1630 hours on 10/01/2020. Electronically signed by: Fabiana Taylor MD (10/01/2020 4:36 PM) [id number]
--- NOTE | 2020-10-01 17:29 | RAD ---
CHEST CT WITHOUT CONTRAST CLINICAL INDICATIONS: Right-sided hydropneumothorax versus progression of cavitary lesion seen on rec ent chest x-ray performed today. History of pneumonia. TECHNIQUE: Noncontrast helical CT scanning of the chest was performed. Without IV contrast, the sensi tivity to detect organ pathology is decreased. PQRS compliance Statement One or more of the following individualized dose reduction techniques were utilized for this study: 1. Automated exposure control 2. Adjustment of the mA and/or kV according to patient size 3. Use of iterative reconstruction technique COMPARISON: Chest CT dated September 24, 2020. FINDINGS: Reactive lymph nodes are seen within the mediastinum. No focal aneurysmal dilatation of the thoracic aorta is seen. Heart size is enlarged secondary to moderate pericardial effusion. Minimal l eft-sided pleural effusion is seen. There is mild atelectasis of the left lung base. The left-sided b ronchi are patent. There is a prominent right-sided pleural effusion. There is a prominent air-fluid level within the right hemithorax anteriorly consistent with a large right-sided hydropneumothorax. T here is complete collapse of the right lung field with nonaeration of the right-sided bronchi. Multip le bubbles of air are present within the lateral and posterior right-sided pleural effusion as well. No lytic process is seen. IMPRESSION: Large right-sided hydropneumothorax with complete compression of the entire right lung fi eld and nonaeration of the right sided bronchi. There is mediastinal shift and cardiac shift towards the left side. Moderate pericardial effusion has developed as well. FOR INTERNAL CODING PURPOSES Critical result: Findings discussed with Di, the patient's floor nurse at 10/01/2020 5:23 PM. RESULT CODE: (C) Electronically signed by: Beka Grant MD (10/01/2020 5:26 PM) [id number]
--- NOTE | 2020-10-01 18:20 | NUR ---
Dr. Amaya called, stated he decided to tx pt to [facility] for poss. thoracic sx. Marycruz,RN nursing special education supervisor notified of tx.
--- NOTE | 2020-10-01 18:32 | PDOC ---
Provider Note Date of Service: DATE: 10/01/20 TIME: 18:24 Provider Note I have reviewed patients cxr and ct chest . Patient has developed worsening complication of necrotizing pneumonia and lung abscess. He now has significant hydropneumothorax. 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 He needs thoracic surgery as soon as possible. I have spoken to Dr Zavala ( thoracic). He has accepted patient . Will inform the transport team for bed availability and formal [facility] acceptance. I have talked to patient over phone and informed him about the condition. Spoke with RN and will proceed. Justifications for Admission Other Justification Pneumonia CARIDAD ALMONTE MD Oct 01, 2020 18:31
[2020-10-01] MEDS: MORPHINE SULFATE 2 MG/ML VIAL. IV PRN (18:45)
--- NOTE | 2020-10-01 18:45 | NUR ---
[facility] called, requested facesheet be faxed to them. Facesheet faxed. [facility] also gave instructions to send H&P, consult/progress notes x 2-3 days, labs x 2-3 days, radiology reports and cloud radiology images. MarycruzRN nursing fast food shift supervisor notified, stated she would obtain records and fax them.
--- NOTE | 2020-10-01 20:40 | NUR ---
Patient discharged per ambulance to [facility]. Patient needs emergent surgery for hydropneumothoracic with left shift and necrotizing pneumonia. Guards with patient.
== END 2020-10-01 20:40 | disposition short-term general hospital (02) | DRG 177 ==
LOC: ER 13:13 → EEVIPCON 13:13 → 4 NORTH 20:35
PROVIDERS: ADMIT Internal Medicine; ATTEND Internal Medicine
PROC: 0B9F8ZX Drainage of Right Lower Lung Lobe, Via Natural or Artificial Opening Endoscopic, Diagnostic (ICD-10-PCS; principal; 2020-09-27 12:00)
DX: J85.1 Abscess of lung with pneumonia (principal); E43 Unspecified severe protein-calorie malnutrition; E87.1 Hypo-osmolality and hyponatremia; J90 Pleural effusion, not elsewhere classified; J85.0 Gangrene and necrosis of lung; D64.9 Anemia, unspecified; Z20.822 Contact with and (suspected) exposure to COVID-19; Z88.1 Allergy status to other antibiotic agents; Z87.09 Personal history of other diseases of the respiratory system; Z87.891 Personal history of nicotine dependence; Z68.24 Body mass index [BMI] 24.0-24.9, adult
CPT/HCPCS: 31622; 36415; 71045; 71250; 71275; 80048; 80053; 81001; 83605; 83735; 83880; 84100; 84145; 84484; 85007; 85025; 85379; 86703; 87040; 87070; 87102; 87116; 87205; 87252; 87426; 87641; 87801; 88112; 88312; 93005; 94640; 94760; 96361; 96365; 99285; J1650; J2270; J2543; J2704; J3370; J3490; J7030; J7040; J7120; Q9967; U0003; U0005; G0378; J7613